=== PATIENT | male | born 1950 | race Caucasian/White ===

== ENCOUNTER 2018-07-28 15:46 | Outpatient (REF) | payer MEDICARE, SELFPAY ==
[2018-07-28 18:42] LABS: ALT 35 U/L (12-78); Anion Gap 10.9 mmol/L (3-11); BUN 21 mg/dL (7-18); CO2 27.1 mmol/L (21.0-32.0); CREATININE 1.22 mg/dL (0.70-1.30); Calcium 8.7 mg/dL (8.5-10.1); Chloride 106 mmol/L (98-107); Estimated GFR 59.43 (mL/min/1.73m2); Glucose 138 mg/dL (70-100); LDL CHOLESTEROL 66 mg/dL (<100); Potassium 4.3 mmol/L (3.5-5.1); Sodium 144 mmol/L (136-145)
== END 2018-07-28 16:06 ==
LOC: NCHCN 15:46
PROVIDERS: PCP Internal Medicine; Visit Provider Internal Medicine
DX: E11.9 Type 2 diabetes mellitus without complications (principal); I10 Essential (primary) hypertension
CPT/HCPCS: 80048; 83721; 84460

== ENCOUNTER 2018-08-06 16:54 | Emergency (ER) | payer MEDICARE, SELFPAY ==
[2018-08-06 17:01] VITALS: BP 168/58; PULSE 68; RESP 20; TEMP 36.6; O2SAT 93
--- NOTE | 2018-08-06 17:11 | W.ED.GENAD ---
Discharge Plan Disposition Patient Disposition: HOME Condition: Good Discharge Details Chief Complaint: Cellulitis Clinical Impression: Gout Primary Care Provider: Zach Bustillo ED Provider: Sin Wolfe Home Meds and New Rx's Prescriptions: New ibuprofen [Motrin IB] 200 MG tablet 600 mg PO Q6H 5 Days Qty: 60 RF: 0 Continued aspirin [Aspir-81] 81 MG tablet,delayed release (DR/EC) 81 mg PO DAILY RF: 0 amlodipine 10 MG tablet 10 mg PO DAILY RF: 0 hydrochlorothiazide 25 MG tablet 25 mg PO DAILY RF: 0 albuterol sulfate [ProAir HFA] 200 PUFF HFA aerosol inhaler 2 puff Inhalation Q8H PRN PRNRF: 0 lisinopril 40 MG tablet 40 mg PO DAILY RF: 0 atenolol 50 MG tablet 50 mg PO DAILY RF: 0 Symbicort 1 PUFF HFA aerosol inhaler 1 puff Inhalation BID RF: 0 atorvastatin 40 mg Tablet 40 mg PO QPM RF: 0 metformin 850 mg Tablet 850 mg PO BID RF: 0 Discharge Instructions Instructions: Gout (ED) Additional Instructions: You are having a gouty attack. For the next 5 days stop eating cheese and meat. Please take 600 mg of ibuprofen every 6 hours for the next 4 to 5 days. If you notice any worsening of your symptoms, or any new symptoms such as vomiting, diarrhea, fever, chills, shortness of breath, chest pain, numbness, weakness, or fainting , please return immediately to the emergency department for reevaluation. Please follow up with your primary care provider as soon as possible for reassessment and reevaluation. If your symptoms do not improve after 5 days you may require additional medications including steroids or more side effect inducing addition gout medications. as always, it was a pleasure participating in your medical care today. Referrals: Zach Bustillo [Primary Care Provider] - Medical Decision Making This is a 67-year-old male with with a past medical history of gout who presents today for evaluation of pain in his great right toe for the last 3 to 4 days. He states that it feels just like out in the past. He does eat meat and cheese on a daily basis. Normally he takes black cherries to resolve his symptoms however unfortunately it is not black conner season. He presents today for treatment of his symptoms. He denies any concerning red flags of fever chills spreading redness swelling, leg pain, or calf pain. He denies any other complaints or modifying factors. Exam demonstrates signs and symptoms clinically consistent with gout. We will recommend NSAIDs to start, and hold off on steroids or colchicine secondary to his diabetes and the risk for inflation of high sugars, and diarrhea. Recommend abstaining from meat and cheese, and close follow-up with his PCP with no history of trauma and I see no current clinical indication for radiographic imaging. Signs and symptoms are inconsistent with fracture. I have extensively reviewed the treatment plan and discharge instructions with the patient and their family. I have addressed all patient concerns at this time. The patient and family was made aware of what symptoms to monitor for that would warrant a return to the emergency department. Discussed the plan with the patient and family, they demonstrate verbal understanding and agreement with our assessment and plan at this time. HPI General Date/Time Provider Initiated Documentation: 08/06/18 16:55. HPI Narrative: This is a pleasant 67-year-old male with a past medical history of hypertension, COPD, diabetes, CVA, high cholesterol, who presents today for evaluation of pain in his right great toe for the last 3 to 4 days. He has a history of gout and states that this feels very similar to this, normally he takes black cherries however he is not been able to find any black conner since that is out of season. He states he does eat a significant amount of preserved meats and cheeses every day, and denies any recent long trips, trauma, or other complaint. Pain is localized in his right great toe. There is some radiation in the foot when he walks, but no other pain or complaint. No calf tenderness. No shortness of breath, chest pain, numbness tingling or weakness. He denies any other modifying factors. He denies any fever or chills. He denies any recent surgeries, IV or illicit drug use Related Data Home Medications Medication Instructions Recorded Confirmed Symbicort 1 puff INHALATION BID 03/13/14 08/06/18 albuterol sulfate [ProAir HFA] 2 puff INHALATION Q8H PRN PRN 03/13/14 08/06/18 amlodipine 10 mg PO DAILY 03/13/14 08/06/18 aspirin [Aspir-81] 81 mg PO DAILY 03/13/14 08/06/18 atenolol 50 mg PO DAILY 03/13/14 08/06/18 hydrochlorothiazide 25 mg PO DAILY 03/13/14 08/06/18 lisinopril 40 mg PO DAILY 03/13/14 08/06/18 atorvastatin 40 mg PO QPM 08/06/18 08/06/18 ibuprofen [Motrin Ib] 600 mg PO Q6H 5 Days #60 tab 08/06/18 metformin 850 mg PO BID 08/06/18 08/06/18 Previous Rx's Medication Instructions Recorded ibuprofen [Motrin Ib] 600 mg PO Q6H 5 Days #60 tab 08/06/18 Allergies Allergy/AdvReac Type Severity Reaction Status Date / Time No Known Allergies Allergy Unverified 08/06/18 17:05 General Stated Complaint: Cellulitis ANGELO: 3 Review of Systems Review of Systems All systems reviewed & are unremarkable except as noted in HPI and below PFSH Social History Smoking/Tobacco Use Status: Current every day Alcohol Intake: never Drug use: Never Details: Quit cigarettes 6-9 mos ago Do you feel safe at home: Yes Do you feel safe in your relationship?: Yes Exam Narrative Exam Narrative: 1.Const: Well-nourished, Well-developed, appearing stated age 2.Eyes: PERRL, no conjunctival injection, and symmetrical lids. 3.ENT: Atraumatic external nose and ears. Moist MM. Neck: Symmetric, trachea midline, No thyromegaly. 4.CVS: +S1/S2, No murmurs or gallops. Peripheral pulses 2+ and equal in all extremities. Brisk capillary refill in all extremities. 5.RESP: Unlabored respiratory effort. Clear to auscultation bilaterally. No wheezes rales or rhonchi 6.GI: Soft, Nontender/Nondistended, No hepatosplenomegaly. No guarding or rebound. 7.MSK: Normocephalic/Atraumatic, Extremities w/o deformity. No cyanosis or clubbing, Normal movement of all extremities. Mild erythema around the metatarsal phalangeal joint of the great toe in the right foot. No significant warmth. No crepitus. No tophaceous gout. No evidence of trauma. No reproducible pain in the foot heel or calf. Capillary refill brisk. No evidence of cellulitis. No induration or severe edema. Notable worsening of pain with movement of the toe. 8.Skin: Warm, Dry. No rashes or lesions. 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 Sensation grossly intact, no focal neurologic deficits. 10.Psych: (AAO) x3. Appropriate mood and affect Course Vital Signs Temperature 36.6 C 08/06/18 17:01 Pulse 68 08/06/18 17:01 Respiratory Rate 20 08/06/18 17:01 Blood Pressure 168/58 H 08/06/18 17:01 Pulse Oximetry 93 L 08/06/18 17:01 Temperature 36.6 C 08/06/18 17:01 Temperature Source Oral 08/06/18 17:01 Pulse 68 08/06/18 17:01 Respiratory Rate 20 08/06/18 17:01 Respiratory Effort Non-Labored 08/06/18 17:03 Blood Pressure 168/58 H 08/06/18 17:01 Blood Pressure Position Supine 08/06/18 17:01 Pulse Oximetry 93 L 08/06/18 17:01 Oxygen Delivery Method Room Air 08/06/18 17:01 Oxygen Flow Rate 0 08/06/18 17:01
== END 2018-08-06 17:23 | disposition home or self-care (01) ==
PROVIDERS: Emergency Provider Student in an Organized Health Care Education/Training Program; PCP Internal Medicine
DX: M10.071 Idiopathic gout, right ankle and foot (principal); I10 Essential (primary) hypertension; J44.9 Chronic obstructive pulmonary disease, unspecified; E11.9 Type 2 diabetes mellitus without complications
CPT/HCPCS: 99282

== ENCOUNTER 2019-04-09 09:23 | Emergency (ER) | payer MEDICARE, SELFPAY ==
[2019-04-09 09:29] VITALS: BP 128/72; PULSE 62; RESP 16; TEMP 37; O2SAT 95
--- NOTE | 2019-04-09 09:45 | DI.RAD_ITS ---
EXAM: XR FOOT RT COMPLETE CLINICAL HISTORY: pain, r/o stress fracture TECHNIQUE: COMPARISON: No exams were available for comparison FINDINGS: Three views were obtained. There are degenerative changes of the foot and ankle particularly at the tibiotalar joint. No evidence of acute fracture. The requisition raises the possibility of stress f racture, there is no discrete evidence of stress fracture but if there is a high clinical suspicion o f stress fracture additional evaluation with bone scan or MRI may be considered. IMPRESSION:
--- NOTE | 2019-04-09 09:45 | DI.RAD_ITS ---
EXAM: XR ANKLE RT COMPLETE CLINICAL HISTORY: pain TECHNIQUE: COMPARISON: No exams were available for comparison FINDINGS: Three views were obtained. Moderate degenerative changes noted at tibiotalar joint and to a lesser d egree the subtalar joints. No fracture identified. The ankle mortise is well maintained. IMPRESSION:
--- NOTE | 2019-04-09 09:48 | W.ED.GENAD ---
Discharge Plan Disposition Patient Disposition: HOME Condition: Stable Discharge Details Chief Complaint: Orthopedic Clinical Impression: Pain Primary Care Provider: Zach Bustillo ED Provider: Izzy Pizarro Home Meds and New Rx's Prescriptions: New prednisone 20 mg tablet 40 mg PO DAILY Qty: 6 RF: 0 No Action aspirin [Aspir-81] 81 MG tablet,delayed release (DR/EC) 81 mg PO DAILY RF: 0 amlodipine 10 MG tablet 10 mg PO DAILY RF: 0 hydrochlorothiazide 25 MG tablet 25 mg PO DAILY RF: 0 albuterol sulfate [ProAir HFA] 200 PUFF HFA aerosol inhaler 2 puff Inhalation Q8H PRN PRNRF: 0 lisinopril 40 MG tablet 40 mg PO DAILY RF: 0 atenolol 50 MG tablet 50 mg PO DAILY RF: 0 budesonide-formoterol [Symbicort] 1 PUFF HFA aerosol inhaler 1 puff Inhalation BID RF: 0 atorvastatin 40 mg Tablet 40 mg PO QPM RF: 0 metformin 850 mg Tablet 850 mg PO BID RF: 0 Discharge Instructions Instructions: Gout (ED) Additional Instructions: Rest. Activities as tolerated. Elevate injury to prevent swelling. Ice to the area of discomfort for 15 min. 3-5 times daily. Prednisone for three days for inflammation. Closely monitor your blood sugars while taking this medication. Followup with ultrasound on thursday as discussed. Post operative shoe or supportive boot for comfort. Followup with Primary care doctor as discussed for reevaluation early this week. Please recheck right lower leg pain and followup on your kidney function changes as discussed Drink at least four 8oz glasses of water daily (Ideally your should be drinking eight 8 oz glasses daily). Limit soda consumption. Return for any worsening or concerns sooner if needed. Discharge Data Discharge Date/Time-TO BE ENTERED AT DEPARTURE: 04/09/19 12:12 Medical Decision Making Is a very pleasant 68-year-old gentleman who is status post CVA with left-sided weakness presenting to the emergency room for atraumatic right lower leg pain. Patient comes in planes of ankle pain however on exam has notable foot pain and swelling. Lacks ankle pain or swelling. Patient has no associated calf pain or swelling proximal to the foot. Patient has no obvious erythema or warmth. No open wounds. Sensation intact. Pulses intact. Good cap refill. Patient does have a history of gout. It is possible that this patient is having a flare of gout however will rule out stress fracture as patient is complaining of focal pain on exam. Patient offered Tylenol declines at this time. Patient denies any ill feeling whatsoever. Reports 3 days of pain without escalation since onset. Patient's vital signs reviewed. Vital signs normal, patient afebrile and well-appearing in general. X-rays reveal no acute fracture. There are degenerative changes noted which are moderate at the first metatarsophalangeal joint. Labs reveal minimal leukocytosis. Patient's BUN and creatinine are somewhat worse compared to baseline. I have discussed this with the patient. I recommended he begins to drink water. Patient reports he has not had a glass of water in approximately 3 months. Encouraged discontinuation of soda drinking and encouraged normal hydration. We discussed amounts to drink and expectations. We also discussed good blood sugar monitoring. Patient advised to follow-up closely with his doctor for rechecking labs related to his kidney function. No obvious elevation in uric acid on patient's serum testing however given patient's spontaneous onset of 3 days of foot pain and swelling with history of gout in the past gout remains as part of the differential. Given patient's renal function I will provide prednisone as opposed to colchicine for management with a very short course of prednisone provided for only 3 days. I did discuss close monitoring of blood sugar while taking prednisone. Patient reports his understanding and agrees with plan of care. Offered postoperative shoe for patient's comfort. Patient does not appear systemically ill and has no significant indicators of infection clinically at this time. I did discuss observation for any increase in swelling or redness which could develop. If redness or infectious signs develop patient's been recommended to return to the emergency room. Given onset of right foot swelling without obvious injury or trauma and patient's history of stroke I will order outpatient ultrasound for Thursday although I have a low suspicion and do not feel this patient requires anticoagulation at this time but rather close follow-up in outpatient ultrasound on Thursday. Patient agrees with plan of care. Encouraged to continue aspirin daily until that time. Encourage close follow-up with PCP. Patient agrees with plan of care. Patient declines any medications at this time he does have Vicodin at home if required for pain. The patient was stable and requested discharge. Prior to discharge, my usual and customary return precautions were reviewed with the patient - this included follow-up instructions and reasons to return to the Emergency Department if conditions worsens, does not improve as expected, or other new concerns arise. HPI General Date/Time Provider Initiated Documentation: 04/09/19 09:46. HPI Narrative: Is a very pleasant 68-year-old gentleman presenting to the emergency room for complaints of right leg pain. Patient specifically reports 3 days ago he awoke with right foot and ankle pain when getting out of bed in the morning. Patient reports persistence of pain for the last 3 days. No escalation of pain. Patient concerned with the possibility of a sprained ankle but denies any specific injury or trauma. Patient does have a history of gout in his great toe in the past. Patient denies any ill feeling, fever, chills, nausea, vomiting. Denies calf pain. Patient denies numbness, tingling or weakness associated. Patient does have a history of CVA with left-sided deficits and baseline weakness of his left side, walks with a cane for ambulation and stability. Reports his right side is as strong side and his right lower leg is the site of pain which is quite difficult to manage with his baseline left-sided weakness. Related Data Home Medications Medication Instructions Recorded Confirmed albuterol sulfate [ProAir HFA] 2 puff INHALATION Q8H PRN PRN 03/13/14 04/09/19 amlodipine 10 mg PO DAILY 03/13/14 04/09/19 aspirin [Aspir-81] 81 mg PO DAILY 03/13/14 04/09/19 atenolol 50 mg PO DAILY 03/13/14 04/09/19 budesonide-formoterol [Symbicort] 1 puff INHALATION BID 03/13/14 04/09/19 hydrochlorothiazide 25 mg PO DAILY 03/13/14 04/09/19 lisinopril 40 mg PO DAILY 03/13/14 04/09/19 atorvastatin 40 mg PO QPM 08/06/18 04/09/19 metformin 850 mg PO BID 08/06/18 04/09/19 prednisone 40 mg PO DAILY #6 tab 04/09/19 Previous Rx's Medication Instructions Recorded prednisone 40 mg PO DAILY #6 tab 04/09/19 Allergies Allergy/AdvReac Type Severity Reaction Status Date / Time No Known Allergies Allergy Unverified 04/09/19 09:49 General Stated Complaint: Orthopedic ANGELO: 3 Review of Systems All systems reviewed & are unremarkable except as noted in HPI and below Constitutional Constitutional: Denies chills, Denies fatigue, Denies fever(s), Denies headache(s) and Denies malaise ENT Ears, Nose, Mouth, and Throat: Denies headache(s) and Denies neck pain Musculoskeletal Musculoskeletal: Reports abnormal gait (limping, difficulty ambulating, walking w/ cane), Denies back pain, Denies neck pain, Denies numbness, Denies radiating pain into limb and Denies tingling Integumentary/Breasts Skin/Breast: Denies erythema, Denies rash and Denies wounds Neurologic Neurologic: Reports abnormal gait (limping, difficulty ambulating, walking w/ cane), Denies headache(s), Denies numbness and Denies tingling Endocrine Endocrine: Denies fatigue [facility] Social History Smoking/Tobacco Use Status: Former Tobacco Use Alcohol Intake: never Drug use: Never Details: Quit cigarettes 6-9 mos ago Do you feel safe at home: Yes Do you feel safe in your relationship?: Yes Exam Narrative Exam Narrative: CONST: Healthy appearing patient, in no acute distress. Well hydrated. Alert and oriented. NECK: Normal visual inspection. FROM. Trachea midline. No Midline tenderness. MUSCULOSKELETAL: With use of a cane, limping gait. No hip pain with palpation, knee pain with palpation or edwards pain with palpation. No calf pain with palpation. No ankle pain with palpation either medially laterally or posteriorly. Achilles tendon intact and nontender. No erythema or swelling of the ankle. Moderate swelling of the right foot. Foot pain with palpation along the fourth and fifth metacarpals as well as of the great toe. No open wounds. Pulses intact. Cap refill normal. Sensation intact. Full range of motion. Pain reported when bearing weight SKIN: Normal. Dry. No rashes. NEURO: Alert and awake. Speech clear. PSYCH: Normal affect. Cooperative.
[2019-04-09 10:09] LABS: Abs Immature Grans 0.02 k/cumm (0.0-0.09); Absolute Basophil Count 0.02 k/cumm (0.0-0.2); Absolute Eosinophil Count 0.09 k/cumm (0.0-0.7); Absolute Monocyte Count 1.02 k/cumm (0.11-0.7); Basophils % 0.2; Eosinophils % 0.8; HCT 42.4 % (40.0-50.0); HGB 13.9 g/dL (13.5-17.5); Immature Grans % 0.2 %; Lymphocytes % 10.2; Mean Corp. HGB Concentration 32.8 g/dL (32.0-36.0); Mean Corpuscular Hemoglobin 29.6 pg (27.0-33.0); Mean Corpuscular Volume 90.4 fL (80-95); Mean Platelet Volume 10.2 fL (8.0-11.0); Monocytes % 8.7; Neutrophils % 79.9; Platelet Count 245 x1000/uL (130-400); RBC 4.69 m/cumm (4.50-6.00); RBC Distribution Width 13.7 % (11.8-14.1); White Blood Cell Count 11.73 k/cumm (4.4-10.8)
[2019-04-09 10:10] LABS: Absolute Neutrophil Count 9.37 k/cumm (1.2-6.7)
[2019-04-09 10:22] LABS: ALT 25 U/L (16-63); AST 19 U/L (15-37); Albumin 3.4 g/dL (3.4-5.0); Alkaline Phosphatase 67 U/L (46-116); Anion Gap 10.7 mmol/L (3-11); BUN 23 mg/dL (7-18); CO2 27.3 mmol/L (21.0-32.0); CREATININE 1.53 mg/dL (0.70-1.30); Calcium 8.9 mg/dL (8.5-10.1); Chloride 101 mmol/L (98-107); Estimated GFR 45.63 (mL/min/1.73m2); Glucose 144 mg/dL (74-106); Potassium 4.6 mmol/L (3.5-5.1); Sodium 139 mmol/L (136-145); Total Protein 7.8 g/dL (6.4-8.2)
[2019-04-09 10:23] LABS: Uric Acid 7.2 mg/dL (3.5-7.2)
--- NOTE | 2019-04-09 10:50 | DI.VRAD_ITS ---
PROCEDURE INFORMATION: Exam: XR Right Foot Complete Exam date and time: 04/09/2019 10:11 AM Age: 68 years old Clinical indication: Pain; Ankle and foot; Right TECHNIQUE: Imaging protocol: XR Right foot. Views: 3 or more views. COMPARISON: No relevant prior studies available. FINDINGS: Bones/joints: No acute fracture. No dislocation. Moderate degenerative changes of the 1st metatarsophalangeal joint. Mild degenerative changes of the interphalangeal joints. Mild dorsal midfoot degenerative change. Moderate degenerative changes of the ankle. No significant ankle joint effusion. Soft tissues: Non-specific soft tissue swelling of the forefoot. Faint nonspecific radiodensity anterior to the Achilles. IMPRESSION: 1. No acute osseous finding. 2. Moderate degenerative changes as above. 3. Nonspecific forefoot soft tissue swelling. Dictated and Authenticated by: Roc Sommer MD. Ordering:ANDRES Magana MD
--- NOTE | 2019-04-09 10:52 | DI.VRAD_ITS ---
PROCEDURE INFORMATION: Exam: XR Right Ankle Exam date and time: 04/09/2019 10:11 AM Age: 68 years old Clinical indication: Pain; Ankle and foot; Right TECHNIQUE: Imaging protocol: XR Right ankle. Views: 3 or more views. COMPARISON: No relevant prior studies available. FINDINGS: Bones/joints: No acute fracture. No dislocation. Joint spaces maintained. No joint effusion. Moderate degenerative changes of the ankle. Soft tissues: Non-specific soft tissue swelling. Nonspecific faint radiodensities anterior to the Achilles tendon. Calcification of the distal Achilles attachment to the calcaneus. IMPRESSION: No acute findings. Dictated and Authenticated by: Roc Sommer MD. Ordering:ANDRES Magana MD
== END 2019-04-09 12:12 | disposition home or self-care (01) ==
PROVIDERS: Emergency Provider Physician Assistant; PCP Internal Medicine
DX: M25.571 Pain in right ankle and joints of right foot (principal); M10.9 Gout, unspecified; I69.344 Monoplegia of lower limb following cerebral infarction affecting left non-dominant side; R94.4 Abnormal results of kidney function studies; R60.0 Localized edema
CPT/HCPCS: 36415; 80053; 99284; 73610; 73630; 84550; 85025

== ENCOUNTER 2019-09-23 09:23 | Emergency (ER) | payer OTHER, SELFPAY ==
--- NOTE | 2019-09-23 09:28 | W.ED.GENAD ---
Discharge Plan Disposition Patient Disposition: HOME Condition: Stable Discharge Details Chief Complaint: EyeProblem Clinical Impression: Eye foreign body, Corneal abrasion Primary Care Provider: Zach Bustillo ED Provider: Angel Contreras Home Meds and New Rx's Prescriptions: Continued aspirin [Aspir-81] 81 MG tablet,delayed release (DR/EC) 81 mg PO DAILY RF: 0 amlodipine 10 MG tablet 10 mg PO DAILY RF: 0 hydrochlorothiazide 25 MG tablet 25 mg PO DAILY RF: 0 albuterol sulfate [ProAir HFA] 200 PUFF HFA aerosol inhaler 2 puff Inhalation Q8H PRN PRNRF: 0 lisinopril 40 MG tablet 40 mg PO DAILY RF: 0 atenolol 50 MG tablet 50 mg PO DAILY RF: 0 budesonide-formoterol [Symbicort] 1 PUFF HFA aerosol inhaler 1 puff Inhalation BID RF: 0 prednisone 20 mg tablet 40 mg PO DAILY Qty: 6 RF: 0 atorvastatin 40 mg Tablet 40 mg PO QPM RF: 0 metformin 850 mg Tablet 850 mg PO BID RF: 0 hydrocodone-acetaminophen 5-325 mg tablet 1 tab PO DAILY RF: 0 Advair HFA 115-21 mcg/actuation HFA aerosol inhaler 1 puff INHALATION DAILY RF: 0 Discharge Instructions Instructions: Corneal Abrasion (ED), Eye Foreign Body (ED) Additional Instructions: It appears as though you have a foreign body in your eye as well as an abrasion to your cornea. I have inserted Ilotycin eye ointment here in the ER. I have made you an eye appointment at [facility], [place] today at 1:40 PM, be sure to go there at the scheduled time. Their line is [phone]. Please watch for new or worsening symptoms and return to the ER for any concerns. Medical Decision Making 68-year-old gentleman presents for eye irritation, drainage over the past 2 days after he got dirt in his eye 3 days ago. He does not wear contacts or glasses. He denies any visual changes. His eye examination is extremely guarded. His vision bilaterally, left eye, right eye are all 20/[address] 4 drops of tetracaine in the right eye. Upon reevaluation he reports that he is asymptomatic, pain has resolved completely. Eye exam remains extremely guarded. Using tetracaine I am able to visualize a foreign body near the center of his pupil and a abrasion in the 3 o'clock position. Simply placing the fluorescein strip in his eye was very difficult, he did move his head during this. D foreign body in his pupil area appears slightly deeper than what I would expect a Q-tip to be able to remove. I believe he will likely require removal with a 18-gauge needle or drill. Given his difficult eye exam, I am concerned to cause more damage while attempting to remove the foreign body. Certainly not emergent in nature. I will attempt to get him an appointment with an patient accounts specialist. In the meantime Ilotycin eye ointment placed in the right eye We were able to make an appointment at [facility], [place] today at 1:40 PM. I also spoke with the patient's , Julia, to make her aware of the ER visit and the importance of follow-up at 140 today. She is agreeable to this. Patient has no additional questions or concerns and is asymptomatic upon discharge. HPI General Mode of arrival: ambulatory. Date/Time Provider Initiated Documentation: 09/23/19 09:24. Limitations to Documentation: no limitations. Information obtained by: patient. HPI Narrative: This is a 68-year-old male with history of diabetes and hypertension, who presents with right eye irritation. He reports that 2 days ago some dirt from underneath his car fell into his eye. He initially tried to flush his eye out but his eye has become more irritated and red. He reports that his eye is mildly uncomfortable. Minimal drainage but was not crusted shut. He does not wear any contacts or glasses. He denies any blurry or double vision. He has no additional questions or concerns. Denies recent illness or any injury. Related Data Home Medications Medication Instructions Recorded Confirmed albuterol sulfate [ProAir HFA] 2 puff INHALATION Q8H PRN PRN 03/13/14 04/09/19 amlodipine 10 mg PO DAILY 03/13/14 09/23/19 aspirin [Aspir-81] 81 mg PO DAILY 03/13/14 04/09/19 atenolol 50 mg PO DAILY 03/13/14 09/23/19 budesonide-formoterol [Symbicort] 1 puff INHALATION BID 03/13/14 04/09/19 hydrochlorothiazide 25 mg PO DAILY 03/13/14 04/09/19 lisinopril 40 mg PO DAILY 03/13/14 09/23/19 atorvastatin 40 mg PO QPM 08/06/18 09/23/19 metformin 850 mg PO BID 08/06/18 04/09/19 prednisone 40 mg PO DAILY #6 tab 04/09/19 Advair HFA 1 puff INHALATION DAILY 09/23/19 09/23/19 hydrocodone-acetaminophen 1 tab PO DAILY 09/23/19 09/23/19 Previous Rx's Medication Instructions Recorded prednisone 40 mg PO DAILY #6 tab 04/09/19 Allergies Allergy/AdvReac Type Severity Reaction Status Date / Time No Known Allergies Allergy Unverified 09/23/19 09:33 General ANGELO: 3 Review of Systems Constitutional Constitutional: Denies fever(s) and Denies weakness Eyes Eyes: Denies blurry vision, Denies change in vision, Denies diplopia, Reports eye discharge, Reports irritation, Denies loss of peripheral vision, Denies loss of vision, Denies other visual disturbances, Reports eye pain, Denies requires corrective lenses, Denies seeing flashes and Denies photophobia Musculoskeletal Musculoskeletal: Denies numbness and Denies tingling Neurologic Neurologic: Denies loss of vision, Denies numbness, Denies tingling and Denies weakness [facility] Social History Smoking/Tobacco Use Status: Former Tobacco Use Alcohol Intake: never Drug use: Never Details: Quit cigarettes 6-9 mos ago Do you feel safe at home: Yes Do you feel safe in your relationship?: Yes Exam Const General: cooperative, healthy appearing, comfortable and no acute distress Orientation: alert, awake and oriented x3 HENMT Head: normal to inspection, normocephalic and atraumatic Face and sinus: normal facial exam Mouth: moist mucous membranes Eyes General: appearance normal, both eyes and all related structures Alignment and Position: alignment normal Periorbital: periorbital findings normal Eyelids: eyelids normal Conjunctivae: conjunctival abnormality right conjunctival injection Sclera: scleral abnormality right scleral injection diffuse Cornea: corneas abnormal on the right fluorescein used, abrasion (3 o'clock position) and foreign body (Centrally to the pupil) and fluorescein used Pupils: PERRL EOM: EOM intact bilaterally Direct ophthalmoscopy: normal light reflex Other: Extremely guarded eye exam Neck Neck: normal visual inspection, full ROM, trachea midline and supple Resp Effort & Inspection: normal respiratory effort and able to speak in complete sentences Cardio Rate: regular rate Rhythm: regular rhythm Skin General skin exam: no rashes or lesions noted Neuro General: patient alert, patient awake, patient oriented x3, moves all extremities and no focal motor deficits Cranial Nerves: CN's II-XI intact bilaterally Cognition: normal cognition Speech: speech normal Sensory Exam: no sensory deficits noted Psych Appearance: grossly normal Mental Status: mental status grossly normal
[2019-09-23 09:29] VITALS: BP 140/75; PULSE 54; RESP 18; TEMP 36.4; O2SAT 94
[2019-09-23] MEDS: Erythromycin Ophth Oint 3.5 GM TUBE OD (10:41)
[2019-09-23 10:50] VITALS: BP 140/75; PULSE 54; RESP 18; TEMP 36.4; O2SAT 94
== END 2019-09-23 10:55 | disposition home or self-care (01) ==
PROVIDERS: Emergency Provider Physician Assistant; PCP Internal Medicine
DX: S05.8X1A Other injuries of right eye and orbit, initial encounter (principal); T15.91XA Foreign body on external eye, part unspecified, right eye, initial encounter; X58.XXXA Exposure to other specified factors, initial encounter; I10 Essential (primary) hypertension; E11.9 Type 2 diabetes mellitus without complications; Z79.84 Long term (current) use of oral hypoglycemic drugs
CPT/HCPCS: 99283

== ENCOUNTER 2020-07-26 16:01 | Outpatient (REF) | payer OTHER, SELFPAY ==
[2020-07-26 18:48] LABS: ALT 28 U/L (16-63); Anion Gap 10.5 mmol/L (3-11); BUN 34 mg/dL (7-18); CO2 27.5 mmol/L (21.0-32.0); CREATININE 1.6 mg/dL (0.70-1.30); Chloride 103 mmol/L (98-107); Glucose 106 mg/dL (74-106); LDL CHOLESTEROL 55 mg/dL (<100); Potassium 3.7 mmol/L (3.5-5.1); Sodium 141 mmol/L (136-145)
== END 2020-07-26 16:02 | disposition home or self-care (01) ==
LOC: NCHCN 16:01
PROVIDERS: PCP Internal Medicine; Visit Provider Internal Medicine
DX: I10 Essential (primary) hypertension (principal); E11.9 Type 2 diabetes mellitus without complications; N18.30 Chronic kidney disease, stage 3 unspecified
CPT/HCPCS: 80048; 83721; 84460

== ENCOUNTER → 2020-08-22 14:09 | Outpatient (CLI) | payer OTHER, SELFPAY ==
--- NOTE | 2020-08-22 | DI.RAD_ITS ---
Exam(s) XR FOOT LT COMPLETE EXAM: XR FOOT LT COMPLETE CLINICAL HISTORY: LT FOOT PAIN, M79.672,LT LEG EDEMA. TECHNIQUE: 2D digital imaging was performed. COMPARISON: No exams were available for comparison FINDINGS: There is no acute fracture or dislocation. There are degenerative changes seen at the 1st MTP joint. The bones are normally mineralized. The lateral view of the foot is suboptimal due to patient posi tioning. Dystrophic calcifications are seen in the soft tissues. There is a mild hallux valgus defo rmity. IMPRESSION: No acute fracture or dislocation. DATA REPOSITORY: RADIATION DOSE DELIVERED:
--- NOTE | 2020-08-22 | DI.US_ITS ---
Exam(s) US LOWER EXTREMITY VENOUS LT EXAM: US LOWER EXTREMITY VENOUS LT CLINICAL HISTORY: LT LEG EDEMAM R60.0 TECHNIQUE: Left lower extremity venous ultrasound performed using grayscale, color-flow, and spectra l Doppler analysis. COMPARISON: No exams were available for comparison FINDINGS: The left common femoral, femoral and popliteal veins demonstrate normal compressibility, augmentation , and color Doppler. The posterior tibial veins are patent. The saphenofemoral junction is unremarka ble. There is no evidence of a Bingham cyst. The soft tissues are unremarkable. IMPRESSION: No DVT. DATA REPOSITORY:
== END ==
PROVIDERS: PCP Internal Medicine; Visit Provider Nurse Practitioner Family
DX: R60.0 Localized edema (principal); M79.672 Pain in left foot
CPT/HCPCS: 73630; 93971

== ENCOUNTER 2021-07-24 12:40 | Outpatient (REF) | payer MEDICARE, SELFPAY ==
[2021-07-24 20:00] LABS: HCT 44.2 % (40.0-50.0); HGB 14.7 g/dL (13.5-17.5); MCH 30.4 pg (27.0-33.0); MCHC 33.3 % (32.0-36.0); MCV 92 fL (80-95); MPV 11.1 fL (8.0-11.0); Platelet Count 181 10^3/uL (130-400); RBC 4.83 10^6/uL (4.36-5.78); RDW 13.8 % (11.8-14.1); RDW-SD 46.5 fL; WBC 9.26 10^3/uL (4.4-10.8)
[2021-07-24 20:20] LABS: Anion Gap 12.3 mmol/L (3-11); BUN 28 mg/dL (7-18); CO2 25.7 mmol/L (21.0-32.0); CREATININE 1.5 mg/dL (0.70-1.30); Calcium 8.7 mg/dL (8.5-10.1); Chloride 103 mmol/L (98-107); Glucose 109 mg/dL (74-106); Potassium 4.1 mmol/L (3.5-5.1); Sodium 141 mmol/L (136-145)
== END 2021-07-24 12:41 | disposition home or self-care (01) ==
LOC: NCHCN 12:40
PROVIDERS: PCP Internal Medicine; Visit Provider Internal Medicine
DX: R60.0 Localized edema (principal); N18.30 Chronic kidney disease, stage 3 unspecified; E11.9 Type 2 diabetes mellitus without complications
CPT/HCPCS: 80048; 85027; 84443

== ENCOUNTER 2022-11-20 16:44 | Outpatient (REF) | payer MEDICARE, SELFPAY ==
[2022-11-20 19:35] LABS: Anion Gap 3.8 mmol/L (3-11); BUN 26 mg/dL (7-18); CO2 30.2 mmol/L (21.0-32.0); CREATININE 1.4 mg/dL (0.70-1.30); Calcium 9.2 mg/dL (8.5-10.1); Calculated LDL 49 mg/dL (<100); Chloride 106 mmol/L (98-107); Cholesterol 123 mg/dL (<200); Estimated GFR 53.74 (mL/min/1.73m2); Glucose 184 mg/dL (74-106); HDL Cholesterol 40 mg/dL (40-60); Sodium 140 mmol/L (136-145); Triglyceride 173 mg/dL (<150)
== END 2022-11-20 16:45 | disposition home or self-care (01) ==
LOC: NCHCN 16:44
PROVIDERS: PCP Internal Medicine; Visit Provider Internal Medicine
DX: G43.909 Migraine, unspecified, not intractable, without status migrainosus (principal); E11.22 Type 2 diabetes mellitus with diabetic chronic kidney disease; N18.30 Chronic kidney disease, stage 3 unspecified; I12.9 Hypertensive chronic kidney disease with stage 1 through stage 4 chronic kidney disease, or unspecified chronic kidney disease; E78.5 Hyperlipidemia, unspecified; M17.9 Osteoarthritis of knee, unspecified
CPT/HCPCS: 80048; 80061

== ENCOUNTER 2023-08-08 21:28 | Emergency (ER) | payer MEDICARE, SELFPAY ==
[2023-08-08] VITALS (21 sets, daily range): BP systolic 108–138; BP diastolic 51–67; PULSE 83–106; RESP 16–26; TEMP 38; O2SAT 86–99
--- NOTE | 2023-08-08 21:30 | RT.EKG_ITS ---
APPROVED REPORT Exam: Resting ECG Reason for Exam: chest pain Patient Location: E HR:100 bpm ECG Measurements Heart Rate 100 AXIS MT 151 P 68 QRSd 87 QRS 49 QT 290 T 262 QTc 376 Conclusion Sinus tachycardia...rate> 99 Anterior infarct, old...Q >40mS, abnormal ST-T, V2-V5 Physician: no stemi
[2023-08-08 21:56] LABS: Abs Immature Grans 0.09 10^3/uL (0.0-0.06); Absolute Basophil Count 0.03 10^3/uL (0.0-0.2); Absolute Eosinophil Count 0.01 10^3/uL (0.0-0.7); Absolute Lymphocyte Count 0.25 10^3/uL (1.2-3.4); Absolute Monocyte Count 0.47 10^3/uL (0.1-0.8); Absolute Neutrophil Count 13.97 10^3/uL (1.2-6.7); Basophils % 0.2 %; Eosinophils % 0.1 %; HCT 46.7 % (40.0-50.0); HGB 15.7 g/dL (13.5-17.5); Immature Grans % 0.6 %; Lymphocytes % 1.7 %; MCH 31.1 pg (27.0-33.0); MCHC 33.6 % (32.0-36.0); MCV 93 fL (80-95); MPV 10.1 fL (8.0-11.0); Monocytes % 3.2 %; Neutrophils % 94.2 %; Platelet Count 148 10^3/uL (130-400); RBC 5.05 10^6/uL (4.36-5.78); RDW 13.6 % (11.8-14.1); RDW-SD 46.2 fL; WBC 14.83 10^3/uL (4.4-10.8)
[2023-08-08 22:15] LABS: ALT 26 U/L (16-63); AST 18 U/L (15-37); Albumin 3.4 g/dL (3.4-5.0); Alkaline Phosphatase 81 U/L (46-116); Anion Gap 9.8 mmol/L (3-11); BUN 27 mg/dL (7-18); Bilirubin, Total 0.79 mg/dL (0.2-1.0); CO2 27.2 mmol/L (21.0-32.0); CREATININE 1.6 mg/dL (0.70-1.30); Calcium 8.8 mg/dL (8.5-10.1); Chloride 104 mmol/L (98-107); Estimated GFR 45.78 (mL/min/1.73m2); Glucose 127 mg/dL (74-106); Lipase 40 U/L (16-77); Magnesium 1.3 mg/dL (1.8-2.4); Potassium 3.6 mmol/L (3.5-5.1); Sodium 141 mmol/L (136-145); Total Protein 7.1 g/dL (6.4-8.2); Troponin I < 50 ng/L (< or =60)
--- NOTE | 2023-08-08 22:16 | ED.GENADUL_ITS ---
Discharge Plan Discharge Details Chief Complaint: Nausea/Vomit/Diar Clinical Impression: Nausea & vomiting, Dehydration, Hypomagnesemia Primary Care Provider: Zach Bustillo ED Provider: Sin Wolfe Home Meds and New Rx's Prescriptions: No Action aspirin [Aspir-81] 81 MG tablet,delayed release (DR/EC) 81 mg PO DAILY amlodipine 10 MG tablet 10 mg PO DAILY hydrochlorothiazide 25 MG tablet 25 mg PO DAILY albuterol sulfate [ProAir HFA] 200 PUFF HFA aerosol inhaler 2 puff Inhalation Q8H PRN PRN lisinopril 40 MG tablet 40 mg PO DAILY atenolol 50 MG tablet 50 mg PO DAILY budesonide-formoterol [Symbicort] 1 PUFF HFA aerosol inhaler 1 puff Inhalation BID Patient Comments: not using-changed by provider prednisone 20 mg tablet 40 mg PO DAILY Qty: 6 0RF atorvastatin 40 mg Tablet 40 mg PO QPM metformin 850 mg Tablet 850 mg PO BID hydrocodone-acetaminophen 5-325 mg tablet 1 tab PO DAILY Patient Comments: TAKE 1 TABLET BY MOUTH EVERY 6 HOURS NEEDED. MAX DAILY DOSE 4 TABLETS. MUST LAST 28 DAYS Advair HFA 115-21 mcg/actuation HFA aerosol inhaler 1 puff INHALATION DAILY Patient Comments: INHALE 2 PUFFS BY MOUTH TWICE DAILY sumatriptan succinate 50 mg Tablet 50 mg PO ONCE HPI General Date/Time Provider Initiated Documentation: 08/08/23 21:34 . HPI Narrative: 72-year-old male with a past medical history of diabetes, reactive airway disease, gout, who presents today for evaluation of vomiting and feeling unwell. Patient presents via EMS and states that over the last 3 days he has felt unwell, had 3 episodes of vomiting per day, had some mild swelling in his lower extremities. He denies any abdominal pain, chest pain or cough. He does admit to chills. He denies any burning with urination. He states that he vomited just prior to arrival. No other complaints at this time. He denies hemoptysis, hematochezia, melena or acholic stool. Related Data Home Medications Medication Instructions Recorded Confirmed albuterol sulfate 90 mcg/actuation 2 puff inhalation Q8H PRN PRN 03/13/14 09/23/19 aerosol inhaler (ProAir HFA) amlodipine 10 mg tablet 10 mg PO DAILY 03/13/14 09/23/19 aspirin 81 mg tablet,delayed 81 mg PO DAILY 03/13/14 09/23/19 release (Aspir-) atenolol 50 mg tablet 50 mg PO DAILY 03/13/14 09/23/19 budesonide-formoterol HFA 80 1 puff inhalation BID 03/13/14 04/09/19 mcg-4.5 mcg/actuation aerosol inhaler (Symbicort) hydrochlorothiazide 25 mg tablet 25 mg PO DAILY 03/13/14 09/23/19 lisinopril 40 mg tablet 40 mg PO DAILY 03/13/14 09/23/19 atorvastatin 40 mg tablet 40 mg PO QPM 08/06/18 09/23/19 metformin 850 mg tablet 850 mg PO BID 08/06/18 09/23/19 prednisone 20 mg tablet 40 mg (2 x 20 mg) PO DAILY #6 tabs 04/09/19 fluticasone propionate 115 1 puff inhalation DAILY 09/23/19 09/23/19 mcg-salmeterol 21 mcg/actuation HFA inhaler (Advair HFA) hydrocodone 5 mg-acetaminophen 325 1 tab PO DAILY 09/23/19 09/23/19 mg tablet sumatriptan succinate 50 mg tablet 50 mg PO ONCE 09/23/19 09/23/19 Previous Rx's Medication Instructions Recorded prednisone 20 mg tablet 40 mg (2 x 20 mg) PO DAILY #6 tabs 04/09/19 Allergies Allergy/AdvReac Type Severity Reaction Status Date / Time No Known Allergies Allergy Unverified 09/23/19 09:33 General Stated Complaint: Nausea/Vomit/Diar ANGELO: 3 Review of Systems All systems reviewed & are unremarkable except as noted in HPI and below Exam Narrative Exam Narrative: 1.Const: Well-nourished, Well-developed, appearing stated age 2.Eyes: PERRL, no conjunctival injection, and symmetrical lids. 3.ENT: Atraumatic external nose and ears. Dry MM. Neck: Symmetric, trachea midline, No thyromegaly. 4.CVS: +S1/S2, No murmurs or gallops. Peripheral pulses 2+ and equal in all extremities. Brisk capillary refill in all extremities. 5.RESP: Unlabored respiratory effort. Clear to auscultation bilaterally. No wheezes rales or rhonchi 6.GI: Soft, Nontender/Nondistended, No hepatosplenomegaly. No guarding or rebound. 7.MSK: Normocephalic/Atraumatic, Extremities w/o deformity or ttp No cyanosis or clubbing, Normal movement of all extremities. Mild pitting edema of the lower extremities bilaterally. Mild erythema on the pretibial area in the left lower extremity. Mild tenderness over this area of erythema. No fluctuance or abscess. 8.Skin: Warm, Dry. No rashes or lesions. 9.Neuro: parts clerk II-XII grossly intact. Sensation grossly intact, no focal neurologic deficits. 10.Psych: (AAO) x3. Appropriate mood and affect Course Vital Signs Vital signs: Vital Signs Temperature 38.0 C H 08/08/23 21:30 Pulse 106 H 08/08/23 21:30 Respiratory Rate 18 08/08/23 21:30 Blood Pressure 138/67 08/08/23 21:30 Pulse Oximetry 90 L 08/08/23 21:30 Temperature 38.0 C H 08/08/23 21:30 Temperature Source Skin 08/08/23 21:30 Pulse 106 H 08/08/23 21:30 Respiratory Rate 18 08/08/23 21:30 Blood Pressure 138/67 08/08/23 21:30 Blood Pressure Position Sitting 08/08/23 21:30 Pulse Oximetry 90 L 08/08/23 21:39 Oxygen Delivery Method Nasal Cannula 08/08/23 21:39 Oxygen Flow Rate 2 08/08/23 21:39 Lab/Test Results Lab/Test Results: Laboratory Tests Range/Units 08/08/23 21:49 WBC (4.4-10.8) 10^3/uL 14.83 H RBC (4.36-5.78) 10^6/uL 5.05 Hgb (13.5-17.5) g/dL 15.7 Hct (40.0-50.0) % 46.7 MCV (80-95) fL 93 MCH (27.0-33.0) pg 31.1 MCHC (32.0-36.0) % 33.6 RDW (11.8-14.1) % 13.6 Plt Count (130-400) 10^3/uL 148 MPV (8.0-11.0) fL 10.1 Immature Gran % % 0.6 Neutrophils % % 94.2 Lymphocytes % % 1.7 Monocytes % % 3.2 Eosinophils % % 0.1 Basophils % % 0.2 Nucleated RBC % (0.0-0.3) % 0.0 Absolute Neutrophils (1.2-6.7) 10^3/uL 13.97 H Absolute Lymphocytes (1.2-3.4) 10^3/uL 0.25 L Absolute Monocytes (0.1-0.8) 10^3/uL 0.47 Absolute Eosinophils (0.0-0.7) 10^3/uL 0.01 Absolute Basophils (0.0-0.2) 10^3/uL 0.03 Medical Decision Making 72-year-old male with a past medical history of diabetes, reactive airway disease, gout, who presents today for evaluation of vomiting and feeling unwell. Patient presents via EMS and states that over the last 3 days he has felt unwell, had 3 episodes of vomiting per day, had some mild swelling in his lower extremities. He denies any abdominal pain, chest pain or cough. He does admit to chills. He denies any burning with urination. He states that he vomited just prior to arrival. No other complaints at this time. He denies hemoptysis, hematochezia, melena or acholic stool. Exam demonstrates dry mucous membranes, dried vomitus on the side of his mouth, notably nontender nonsurgical abdomen. Lungs are clear. Mild erythema on the left lower extremity in the area of the edema. No circumferential erythema though. No calf tenderness. Pitting edema is +2 in the left lower extremity, +1 in the right lower extremity. No history of DVT. Differential is broad, patient is febrile, mildly tachycardic. Concern for dehydration, pancreatitis, viral etiology, pneumonia, potential cellulitis for the left lower extremity. Symptoms appear inconsistent with intestinal obstruction, inconsistent with appendicitis or cholecystitis as he has no abdominal tenderness whatsoever on exam. We will give 2 g of ceftriaxone for what appears to be mild cellulitis in the left lower extremity. Will get x-ray of the abdomen and chest to evaluate for pneumonia or obstruction. Will check urinalysis for evidence of infection. Will monitor closely and reassess. 10:55 PM Laboratory workup shows white count of 14.8, mild left shift but no bandemia. Creatinine demonstrates 1.6, GFR 45, magnesium is notably low at 1.3. 2 g of IV magnesium will be administered. Urinalysis shows no evidence of infection. Pending x-ray and Fluvid results. Patient does feel better after Zofran. Patient will be signed out to my colleague Dr. Mcfadden for follow-up on Fluvid results, x-rays of the chest and abdomen, and reassessment. 1 L total of normal saline fluid has been ordered for the patient. Quality:[facility] Related Social Needs: No Data to Display [facility] All Active Problems (Updated 08/08/23 @ 22:59 by Sin Wolfe DO) Hypomagnesemia (Acute) Dehydration (Acute) Nausea & vomiting (Acute) Pain (Acute) Social History Smoking/Tobacco Use Status: Former Tobacco Use Smoking risk assessment performed?: Yes Alcohol Intake: never Drug use: Never Details: Quit cigarettes 6-9 mos ago Do you feel safe at home: Yes Do you feel safe in your relationship?: Yes
[2023-08-08 22:25] LABS: Bilirubin Negative (Negative); Blood Small (Negative); Clarity Clear (Clear); Glucose Negative (Negative); Ketones Negative (Negative); Leukocyte Esterase Negative (Negative); Nitrite Negative (Negative)
[2023-08-08 22:27] LABS: Bacteria Rare HPF (Negative); C & S Indicated? No; Casts Negative LPF (Negative); Crystals Negative HPF (Negative); Epithelial Cells Rare HPF (Negative); Mucus Negative (Negative); WBC Negative HPF (0-5)
[2023-08-08] MEDS: Normal Saline 500 ML IV ×2 (23:04→23:42)
[2023-08-08 23:06] LABS: Procalcitonin 1.5 ng/mL
--- NOTE | 2023-08-08 23:30 | ED.PROG_ITS ---
Date of service: 08/08/23 Time of Service: 23:30 Medical Decision Making This patient was signed out to me. Please see previous notes for H&P and initial eval. In brief, 72yo M presenting with N/V for 3 days, exam significant for mild LE cellulitis. Signed out pending respiratory viral swab and XR to eval for bowel obstruction/pneumonia (low suspicion for both, CT scanner down). Given ceftriaxone. Currently feeling much better. Plan at signout to followup XR, respiratory viral swab, and reassess. Potentially appropriate for discharge home if remainder of workup reassuring and able to tolerate PO. -Viral swab negative Plain films independently reviewed. -Abdomen film with no obstruction on my view, radiology read with potential iliac artery aneurysm. As patient is without any pain and asymptomatic with this would advise outpatient followup. -CXR with diffuse interstitial infiltrates, agree with radiology read below with possible CHF. Pt with no history of this and denies any difficulty breathing, lungs CTAB. He does have some LE edema which he says is new. Of note he did have O2 sats in high 80's to low 90's on arrival and was placed on oxygen; does have COPD (not on oxygen at home). On my assessment patient is on 4L O2 NC; trialed off and desats to 87-88 on room air and down to 84 when speaking. Placed back on oxygen. Primary complaint on arrival was vomiting which has since resolved- no vomiting in the ED and patient declined zofran as he was not nauseated at the time. Has since tolerated PO.. SIRS + without overt source of bacterial infection aside from potentially mild cellulitis- he did receive a total of 1L IVF as well ceftriaxone and magnesium repletion. Not clearly septic though is possible. Will send lactate and add on BNP to further evaluate. Will try low dose IV lasix and monitor for effect. Lactate 1.6,reassuring. BNP minimally elevated at 515. On reassessment he is well appearing, O2 sat now 94% on room air, reassuring vital signs. Gee removed. Discussed options with patient; he does not want to remain in the hospital for further workup (i.e. echocardiogram, etc., for possible CHF) and would like to go home. As he has normal vital signs and his labs are overall reassuring and his symptoms have entirely resolved, this is not unreasonable with close PCP followup. Strict return precautions were reviewed. Does have left sided weakness at baseline from prior stroke; trial ambulation and able to stand and ambulate independently with walker (uses cane at home). Discharged home; discharge instructions and return precautions were reviewed with patient who verbalized understanding. All questions were answered and he is in full agreement with the plan. Waiting on ride. Imaging Data Radiologic Study: Imaging: X-Ray Radiologist's impression: IMPRESSION: 1. Probable congestive heart failure. 2. There is diffuse interstitial edema. 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 Consider CT angiography for further evaluation. Constipation. Lab Data Lab results reviewed: Yes I reviewed the patient's lab results. Labs: Laboratory Tests Range/Units 08/08/23 08/08/23 08/08/23 21:47 21:49 22:19 WBC (4.4-10.8) 10^3/uL 14.83 H RBC (4.36-5.78) 10^6/uL 5.05 Hgb (13.5-17.5) g/dL 15.7 Hct (40.0-50.0) % 46.7 MCV (80-95) fL 93 MCH (27.0-33.0) pg 31.1 MCHC (32.0-36.0) % 33.6 RDW (11.8-14.1) % 13.6 Plt Count (130-400) 10^3/uL 148 MPV (8.0-11.0) fL 10.1 Immature Gran % % 0.6 Neutrophils % % 94.2 Lymphocytes % % 1.7 Monocytes % % 3.2 Eosinophils % % 0.1 Basophils % % 0.2 Nucleated RBC % (0.0-0.3) % 0.0 Absolute Neutrophils (1.2-6.7) 10^3/uL 13.97 H Absolute Lymphocytes (1.2-3.4) 10^3/uL 0.25 L Absolute Monocytes (0.1-0.8) 10^3/uL 0.47 Absolute Eosinophils (0.0-0.7) 10^3/uL 0.01 Absolute Basophils (0.0-0.2) 10^3/uL 0.03 VBG Lactate (0.6-1.4) mmol/L Sodium (136-145) mmol/L 141 Potassium (3.5-5.1) mmol/L 3.6 Chloride (98-107) mmol/L 104 Carbon Dioxide (21.0-32.0) mmol/L 27.2 Anion Gap (3-11) mmol/L 9.8 BUN (7-18) mg/dL 27 H Creatinine (0.70-1.30) mg/dL 1.6 H Est GFR (CKD-EPI 2020) (mL/min/1.73m2) 45.78 Glucose (74-106) mg/dL 127 H Calcium (8.5-10.1) mg/dL 8.8 Magnesium (1.8-2.4) mg/dL 1.3 L Total Bilirubin (0.2-1.0) mg/dL 0.79 AST (15-37) U/L 18 ALT (16-63) U/L 26 Alkaline Phosphatase (46-116) U/L 81 Troponin I (< or =60) ng/L < 50 NT-Pro-B Natriuret Pep (<300) pg/mL Total Protein (6.4-8.2) g/dL 7.1 Albumin (3.4-5.0) g/dL 3.4 Lipase (16-77) U/L 40 Procalcitonin ng/mL 1.5 Urine Color (Yellow) Yellow Urine Clarity (Clear) Clear Urine pH (5-8) 6.0 Ur Specific [place] (1.005-1.025) 1.020 Urine Protein (Neg-Trace) mg/dL 100 H Urine Ketones (Negative) mg/dL Negative Urine Blood (Negative) Small H Urine Nitrite (Negative) Negative Urine Bilirubin (Negative) Negative Urine Urobilinogen (Up to 0.2) mg/dL 1.0 H Ur Leukocyte Esterase (Negative) Negative Urine RBC (0-2) HPF 5-10 H Urine WBC (0-5) HPF Negative Ur Epithelial Cells (Negative) HPF Rare Urine Crystals (Negative) HPF Negative Urine Bacteria (Negative) HPF Rare Urine Casts (Negative) LPF Negative Urine Mucus (Negative) Negative Ur Culture Indicated? No Urine Glucose (Negative) mg/dL Negative COVID-19 Source SARS-CoV-2 (PCR) (Negative) Influenza Type A (PCR) (Negative) Influenza Type B (PCR) (Negative) RSV (PCR) (Negative) Range/Units 08/08/23 08/09/23 23:00 02:20 WBC (4.4-10.8) 10^3/uL RBC (4.36-5.78) 10^6/uL Hgb (13.5-17.5) g/dL Hct (40.0-50.0) % MCV (80-95) fL MCH (27.0-33.0) pg MCHC (32.0-36.0) % RDW (11.8-14.1) % Plt Count (130-400) 10^3/uL MPV (8.0-11.0) fL Immature Gran % % Neutrophils % % Lymphocytes % % Monocytes % % Eosinophils % % Basophils % % Nucleated RBC % (0.0-0.3) % Absolute Neutrophils (1.2-6.7) 10^3/uL Absolute Lymphocytes (1.2-3.4) 10^3/uL Absolute Monocytes (0.1-0.8) 10^3/uL Absolute Eosinophils (0.0-0.7) 10^3/uL Absolute Basophils (0.0-0.2) 10^3/uL VBG Lactate (0.6-1.4) mmol/L 1.6 H Sodium (136-145) mmol/L Potassium (3.5-5.1) mmol/L Chloride (98-107) mmol/L Carbon Dioxide (21.0-32.0) mmol/L Anion Gap (3-11) mmol/L BUN (7-18) mg/dL Creatinine (0.70-1.30) mg/dL Est GFR (CKD-EPI 2020) (mL/min/1.73m2) Glucose (74-106) mg/dL Calcium (8.5-10.1) mg/dL Magnesium (1.8-2.4) mg/dL Total Bilirubin (0.2-1.0) mg/dL AST (15-37) U/L ALT (16-63) U/L Alkaline Phosphatase (46-116) U/L Troponin I (< or =60) ng/L NT-Pro-B Natriuret Pep (<300) pg/mL 515 H Total Protein (6.4-8.2) g/dL Albumin (3.4-5.0) g/dL Lipase (16-77) U/L Procalcitonin ng/mL Urine Color (Yellow) Urine Clarity (Clear) Urine pH (5-8) Ur Specific [place] (1.005-1.025) Urine Protein (Neg-Trace) mg/dL Urine Ketones (Negative) mg/dL Urine Blood (Negative) Urine Nitrite (Negative) Urine Bilirubin (Negative) Urine Urobilinogen (Up to 0.2) mg/dL Ur Leukocyte Esterase (Negative) Urine RBC (0-2) HPF Urine WBC (0-5) HPF Ur Epithelial Cells (Negative) HPF Urine Crystals (Negative) HPF Urine Bacteria (Negative) HPF Urine Casts (Negative) LPF Urine Mucus (Negative) Ur Culture Indicated? Urine Glucose (Negative) mg/dL COVID-19 Source Nasopharynx SARS-CoV-2 (PCR) (Negative) Negative Influenza Type A (PCR) (Negative) Negative Influenza Type B (PCR) (Negative) Negative RSV (PCR) (Negative) Negative Quality:[facility] Related Social Needs: No Data to Display Sign Out Sign Out Data: Sign Out Comment: Vomiting for 4 days. Febrile elevated white count. Pending x-ray of the chest and abdomen to evaluate for pneumonia or obstruction. Cellulitis present on the left lower extremity. 2 g of ceftriaxone given here. Hypomagnesemia, 2 g of magnesium ordered. Reassess after imaging and fluids. If able to tolerate p.o., vital signs have improved, patient feels better may be a candidate for discharge with Keflex and Zofran. If no significant clinical improvement may require admission Last updated by Sin Wolfe DO at 08/08/23 23:21 Discharge Plan Disposition Patient Disposition: Home Condition: Good Discharge Details Clinical Impression: Nausea & vomiting, Dehydration, Hypomagnesemia, Cellulitis Primary Care Provider: Zach Bustillo ED Provider: Maryanne Hanson Home Meds and New Rx's Prescriptions: New ondansetron 4 mg tablet,disintegrating 4 mg PO Q8H PRNQty: 7 0RF cephalexin 500 mg capsule 500 mg PO QID Qty: 40 0RF Continued aspirin [Aspir-81] 81 MG tablet,delayed release (DR/EC) 81 mg PO DAILY amlodipine 10 MG tablet 10 mg PO DAILY hydrochlorothiazide 25 MG tablet 25 mg PO DAILY albuterol sulfate [ProAir HFA] 200 PUFF HFA aerosol inhaler 2 puff Inhalation Q8H PRN PRN lisinopril 40 MG tablet 40 mg PO DAILY atenolol 50 MG tablet 50 mg PO DAILY prednisone 20 mg tablet 40 mg PO DAILY Qty: 6 0RF atorvastatin 40 mg Tablet 40 mg PO QPM metformin 850 mg Tablet 850 mg PO BID hydrocodone-acetaminophen 5-325 mg tablet 1 tab PO DAILY Patient Comments: TAKE 1 TABLET BY MOUTH EVERY 6 HOURS NEEDED. MAX DAILY DOSE 4 TABLETS. MUST LAST 28 DAYS fluticasone propion-salmeterol [Advair HFA] 115-21 mcg/actuation HFA aerosol inhaler 1 puff INHALATION DAILY Patient Comments: INHALE 2 PUFFS BY MOUTH TWICE DAILY sumatriptan succinate 50 mg Tablet 50 mg PO ONCE hydrochlorothiazide 12.5 mg capsule 12.5 mg PO ONCE Discontinued budesonide-formoterol [Symbicort] 1 PUFF HFA aerosol inhaler 1 puff Inhalation BID Patient Comments: not using-changed by provider Discharge Instructions Instructions: Cellulitis (Skin Infection), Adult ED Additional Instructions: Take the antibiotic cehpalexin four times a day for the next 10 days. You can take ondanestron up to every 8 hours as needed for vomiting. Call your primary care doctor tomorrow to schedule an appointment for as soon as possible, no later than Thursday, to follow up on your visit. Please discuss your symptoms and mention that you may be developing heart failure and you should be evaluated for an iliac aneurysem. Return to the emergency department for new or worsening symptoms including any difficulty breathing, feeling like you are going to pass out, chest pain, if you continue vomiting, or if you have any other concerns. Referrals: Zach Bustillo [Primary Care Provider] -
--- NOTE | 2023-08-08 23:35 | DI.RAD_ITS ---
Exam(s) XR CHEST 2V PA LATERAL EXAM: XR CHEST 2V PA LATERAL CLINICAL HISTORY: fever, eval for pneumonia TECHNIQUE: 2D digital imaging was performed. Two views. COMPARISON: CR CHEST 2 VIEWS PA,LAT from 10/29/2014 CR,XR XR ABDOMEN FLAT PLATE from 08/08/2023 FINDINGS: Exam was performed in stretcher. Lungs suboptimally inflated. Exam is under penetrated. HEART: Normal size. Aorta: Not dilated. Calcified. PULMONARY VASCULATURE: Prominent. MEDIASTINUM: Unremarkable. LUNGS: Increased interstitial markings. Findings could represent pulmonary edema. PLEURAL SPACE: No pleural effusion or pneumothorax. BONE:Unremarkable for age. SOFT TISSUES: Unremarkable. IMPRESSION: Limited exam due to poor pulmonary inflation and under penetration. Probable CHF. DATA REPOSITORY: RADIATION DOSE DELIVERED:
--- NOTE | 2023-08-08 23:35 | DI.RAD_ITS ---
Exam(s) XR ABDOMEN FLAT PLATE EXAM: 2D digital imaging was performed. CLINICAL HISTORY: vomiting, r/o obstruction. COMPARISON: No exams were available for comparison TECHNIQUE: Supine views of the abdomen performed. FINDINGS: BOWEL GAS PATTERN: Stomach and small bowel nondistended. Large quantity of stool, consistent with co nstipation. CALCIFICATIONS: No radiopaque calcifications. OSSEOUS STRUCTURES: Severe degenerative changes in the spine. OTHER FINDINGS: Right iliac artery aneurysm. IMPRESSION: 1. Nonobstructive bowel gas pattern. Increased stool consistent with constipation. 2. No radiopaque calculi. DATA REPOSITORY: RADIATION DOSE DELIVERED:
[2023-08-08] MEDS: cefTRIAXone 2 GM/50 ML BAG IVPB (23:41)
[2023-08-08] MEDS: MAGNESIUM SULFATE 2 GM/50 ML BAG IVINF (23:42)
[2023-08-08 23:47] LABS: COVID-19 PCR Negative (Negative); Influenza A PCR Negative (Negative); Influenza B PCR Negative (Negative); RSV PCR Negative (Negative)
[2023-08-08 23:52] LABS: Source Nasopharynx
[2023-08-09] VITALS (35 sets, daily range): BP systolic 108–117; BP diastolic 48–66; PULSE 63–87; RESP 17–26; O2SAT 87–96
--- NOTE | 2023-08-09 01:34 | DI.VRAD_ITS ---
PROCEDURE INFORMATION: Exam: XR Abdomen Exam date and time: 08/08/2023 11:26 PM Age: 72 years old Clinical indication: Patient HX: Vomiting, R/O obstruction TECHNIQUE: Imaging protocol: Radiologic exam of the abdomen. Views: Frontal supine view of the abdomen. 1 View. COMPARISON: CR XR CHEST 2V PA LATERAL 08/08/2023 11:20 PM FINDINGS: Heart/Mediastinum: There is no evidence of lymphadenopathy. Lungs: Mild atelectasis at the lung bases. Gastrointestinal tract: Copious amount of stool in colon consistent with constipation. No definitive evidence of bowel obstruction Intraperitoneal space: There is no free intraperitoneal air. Vasculature: Vascular calcification consistent with atherosclerotic peripheral vascular disease. Probable 4.2 cm right common iliac artery aneurysm. Consider CT angiography for further evaluation. Bones/joints: The lumbar spine demonstrates moderate degenerative changes. There are mild degenerative changes of the sacroiliac joints. There are mild degenerative changes of the hip joints. IMPRESSION: Probable 4.2 cm right common iliac artery aneurysm. Consider CT angiography for further evaluation. Constipation. Dictated and Authenticated by: Phil Brumfield MD. Ordering:TYRON Vogt MD
--- NOTE | 2023-08-09 01:35 | DI.VRAD_ITS ---
PROCEDURE INFORMATION: Exam: XR Chest Exam date and time: 08/08/2023 11:20 PM Age: 72 years old Clinical indication: Patient HX: Fever, eval for pneumonia TECHNIQUE: Imaging protocol: Radiologic exam of the chest. Views: 2 views. COMPARISON: No relevant prior studies available. FINDINGS: Lungs: There is pulmonary venous congestion. There is diffuse interstitial edema. Underlying inflammatory or infectious process/pneumonia not excluded. Pleural spaces: There are no pleural effusions. No evidence of pneumothorax. Heart/Mediastinum: The heart is enlarged. There is prominence of the mediastinum. Bones/joints: The skeletal structures and soft tissues show no evidence of fracture or other acute processes. Soft tissues: The soft tissues of the extrathoracic region are unremarkable. IMPRESSION: 1. Probable congestive heart failure. 2. There is diffuse interstitial edema. Underlying inflammatory or infectious process/pneumonia not excluded. Dictated and Authenticated by: Phil Brumfield MD. Ordering:TYRON Vogt MD
[2023-08-09 02:27] LABS: Lactate 1.6 mmol/L (0.6-1.4)
[2023-08-09 02:50] LABS: NT-proBNP 515 pg/mL (<300)
[2023-08-09] MEDS: Furosemide 20 MG/2 ML VIAL IVP (03:15)
[2023-08-09] MEDS: Acetaminophen 325 MG TAB 650 MG PO (05:52)
== END 2023-08-09 09:07 | disposition home or self-care (01) ==
LOC: ER 08-09 07:24
PROVIDERS: Student in an Organized Health Care Education/Training Program; Emergency Provider Student in an Organized Health Care Education/Training Program; PCP Internal Medicine
DX: R11.2 Nausea with vomiting, unspecified (principal); E86.0 Dehydration; E83.42 Hypomagnesemia; L03.116 Cellulitis of left lower limb; R60.0 Localized edema
CPT/HCPCS: 00123; 51702; 80053; 83690; 84145; 87637; 93005; 96361; 96365; 96366; 96367; 96375; 99284; 71046; 74018; 81003; 81015; 83605; 83735; 83880; 84484; 85025; 93010; 99283; J0696; J1941; J3475

== ENCOUNTER 2023-08-13 13:57 | Outpatient (REF) | payer MEDICARE, SELFPAY ==
[2023-08-13 19:10] LABS: HCT 40.6 % (40.0-50.0); HGB 14.2 g/dL (13.5-17.5); MCH 31.3 pg (27.0-33.0); MCV 89 fL (80-95); MPV 11.7 fL (8.0-11.0); Platelet Count 159 10^3/uL (130-400); RBC 4.54 10^6/uL (4.36-5.78); RDW 13.8 % (11.8-14.1); RDW-SD 45.6 fL; WBC 19.78 10^3/uL (4.4-10.8)
[2023-08-13 19:17] LABS: Anion Gap 11.6 mmol/L (3-11); BUN 62 mg/dL (7-18); CO2 26.4 mmol/L (21.0-32.0); CREATININE 1.9 mg/dL (0.70-1.30); Chloride 101 mmol/L (98-107); Estimated GFR 37.25 (mL/min/1.73m2); Glucose 117 mg/dL (74-106); Potassium 3.6 mmol/L (3.5-5.1); Sodium 139 mmol/L (136-145)
[2023-08-13 19:18] LABS: C-Reactive Protein > 25.00 mg/dL (<or=0.5)
== END 2023-08-13 13:58 | disposition home or self-care (01) ==
LOC: NCHCN 13:57
PROVIDERS: PCP Internal Medicine; Visit Provider Internal Medicine
DX: L03.116 Cellulitis of left lower limb (principal); R79.89 Other specified abnormal findings of blood chemistry; R79.82 Elevated C-reactive protein (CRP)
CPT/HCPCS: 80048; 85027; 86140

== ENCOUNTER 2023-08-21 10:27 | Outpatient (REF) | payer MEDICARE, SELFPAY ==
[2023-08-21 18:38] LABS: HCT 42.2 % (40.0-50.0); HGB 13.9 g/dL (13.5-17.5); MCHC 32.9 % (32.0-36.0); MCV 94 fL (80-95); MPV 10.6 fL (8.0-11.0); Platelet Count 325 10^3/uL (130-400); RBC 4.49 10^6/uL (4.36-5.78); RDW 14.2 % (11.8-14.1); RDW-SD 49.2 fL; WBC 11.83 10^3/uL (4.4-10.8)
[2023-08-21 18:49] LABS: Anion Gap 8.3 mmol/L (3-11); BUN 29 mg/dL (7-18); CO2 26.7 mmol/L (21.0-32.0); CREATININE 1.9 mg/dL (0.70-1.30); Calcium 8.9 mg/dL (8.5-10.1); Chloride 106 mmol/L (98-107); Estimated GFR 37.25 (mL/min/1.73m2); Glucose 121 mg/dL (74-106); Potassium 4.7 mmol/L (3.5-5.1); Sodium 141 mmol/L (136-145)
== END 2023-08-21 10:28 | disposition home or self-care (01) ==
LOC: NCHCN 10:27
PROVIDERS: PCP Internal Medicine; Visit Provider Nurse Practitioner Family
DX: L03.116 Cellulitis of left lower limb (principal); R79.89 Other specified abnormal findings of blood chemistry; R79.82 Elevated C-reactive protein (CRP)
CPT/HCPCS: 80048; 85027; 86140

== ENCOUNTER 2023-09-19 17:13 | Emergency (ER) | payer MEDICARE, SELFPAY ==
--- OUTSIDE RECORDS SUMMARY | 2023-09-19 17:20 | XMS_ITS | Encounter Summary ---
Author Organization [facility] Address [address] [place] [address] Care Team Providers Care Heavy Equipment Plumbing Supervisor Name Role Phone Unavailable Primary Care Provider Unavailabl e Encounter Details Date Type Department Care Team (Late st Contact Info) Description 02/18/2005 14:44 EST Hospital Encounter [facility] - [facility] [address] [place] [address] Roc Al MD Social History Tobacco Use Types Packs/Day Years Used Date Smoking Tobacco: Never Assessed Sex and Gender Information Value Date Recorded Sex Assigned at Not on file Gender Identity Not on file Sexual Orientation Not on file documented as of this encounter Plan of Treatment Not on file documented as of this encounter Procedures Procedure Name Priority Date/Time Associated Diagnosis Comments HEMOGLOBIN A1C Routine 02/18/2005 14:17 EST LIPID PROFILE (INCLUDES CHOLESTEROL, TRIGLYCERIDES, HDL, LDL) Routine 02/18/2005 14:17 EST COMPREHENSIVE METABOLIC PANEL (CMP) Routine 02/18/2005 14:17 EST documented in this encounter Results * (ABNORMAL) LIPID PROFILE (INCLUDES CHOLESTEROL, TRIGLYCERIDES, HDL, LDL) (02/18/2005 14:17 EST) Cholesterol 173 mg/dl [facility] Comment: Desirable:<200 Borderline:200-239 High Risk:>[id number] Triglycerides 166(H) 35 - 160 mg/dl [facility] HDL 53 mg/dl [facility] Comment: Highly Desirable:>60 Desirable:35-60 High Risk:<35 LDL, Calculated 87 mg/dl [facility] Comment: Desirable:<130 Borderline:130-159 High Risk:>[id number] Chol/HDL Ratio 3.3 [facility] Fasting? No [facility] 02/18/2005 14:1 7 EST 02/18/2005 16:53 EST Roc Al MD CHEMISTRY & BLOOD GA S ORDERABLES Performing Organization Address [facility] Co de Phone Number [facility] [address] [place] [address] * COMPREHENSIVE METABOLIC PANEL (02/18/2005 14:17 EST) Potassium 4.2 3.5 - 5.0 mEq/L [facility] Sodium 137 136 - 145 mEq/L [facility] Chloride 100 96 - 110 mEq/L [facility] CO2 31 24 - 32 mEq/L [facility] Total Alkaline Phosphatase 76 38 - 126 U/L [facility] Bilirubin, Total <0.5 0.2 - 1.3 mg/dl [facility] AST 29 15 - 46 U/L [facility] ALT 40 21 - 72 U/L [facility] Albumin 4.4 3.4 - 4.9 g/dl [facility] Total Protein 7.4 6.5 - 8.3 g/dl [facility] Creatinine 1.0 0.7 - 1.5 mg/dl [facility] BUN 16 10 - 26 mg/dl [facility] Calcium 9.4 8.5 - 10.5 mg/dl [facility] Calculated Calcium 9.4 8.5 - 10.5 mg/dl [facility] Glucose, Serum 86 70 - 110 mg/dl [facility] Fasting? No [facility] Albumin/Globulin Ratio 1.5 [facility] 02/18/2005 14:1 7 EST 02/18/2005 16:53 EST Roc Al MD CHEMISTRY & BLOOD GA S ORDERABLES Performing Organization Address [facility] Co de Phone Number [facility] [address] [place] [address] * HEMOGLOBIN A1C (02/18/2005 14:17 EST) Hemoglobin A1C 6.7 % [facility] Comment: Reference Range: <6% Normal Range <7% Recommended goal by ADA guidelines 7-8% Suboptimal by ADA guidelines >8% Further action suggested by ADA guidelines 02/18/2005 14:1 7 EST 02/18/2005 16:53 EST Roc Al MD CHEMISTRY & BLOOD GA S ORDERABLES [facility] [address] [place] [address] documented in this encounter Visit Diagnoses Not on filedocumented in this encounter
--- OUTSIDE RECORDS SUMMARY | 2023-09-19 17:20 | XMS_ITS | Encounter Summary ---
Author Organization [facility] Address [address] [place] [address] Care Team Providers Care Financial Writer Name Role Phone Unavailable Primary Care Provider Unavailabl e Encounter Details Date Type Department Care Team (Late st Contact Info) Description 06/07/[address] [address] Unknown, Doctor Essential hypertension, benign; Tobacco use disorder; Obesity, unspecified; Unspecified sleep apnea; DM w/o complication type II; Gout, unspecified; Other and unspecified hyperlipidemia Social History Tobacco Use Types Packs/Day Years Used Date Smoking Tobacco: Never Assessed Sex and Gender Information Value Date Recorded Sex Assigned at Not on file Gender Identity Not on file Sexual Orientation Not on file documented as of this encounter Plan of Treatment Not on file documented as of this encounter Visit Diagnoses Diagnosis Essential hypertension, benign Tobacco use disorder Obesity, unspecified Unspecified sleep apnea Type II or unspecified type diabetes mellitus without mention of complication, not stated as uncontrolled Gout, unspecified Other and unspecified hyperlipidemia documented in this encounter
--- OUTSIDE RECORDS SUMMARY | 2023-09-19 17:20 | XMS_ITS | Encounter Summary ---
Author Organization [facility] Address [address] [place] [address] Care Team Providers Care Enterprise Systems Architect Name Role Phone Unavailable Primary Care Provider Unavailabl e Encounter Details Date Type Department Care Team (Late st Contact Info) Description 08/26/2001 12:59 EDT Hospital Encounter [facility] - Other [address] [place] [address] Arvind Banegas MD Unknown, Provider, Social History Tobacco Use Types Packs/Day Years Used Date Smoking Tobacco: Never Assessed Sex and Gender Information Value Date Recorded Sex Assigned at Not on file Gender Identity Not on file Sexual Orientation Not on file documented as of this encounter Plan of Treatment Not on file documented as of this encounter Procedures Procedure Name Priority Date/Time Associated Diagnosis Comments URINALYSIS WITH MICROSCOPIC IF POSITIVE Routine 08/26/2001 9:14 EDT UA REFLEX Routine 08/26/2001 9:14 EDT URINE [id number] RATIO (ACR) Routine 08/26/2001 9:14 EDT HEMOGLOBIN A1C Routine 08/26/2001 9:14 EDT LIPID PROFILE (INCLUDES CHOLESTEROL, TRIGLYCERIDES, HDL, LDL) Routine 08/26/2001 9:14 EDT COMPREHENSIVE METABOLIC PANEL (CMP) Routine 08/26/2001 9:14 EDT documented in this encounter Results * UA REFLEX (08/26/2001 9:14 EDT) UA Billing Microscopic not indicated. [facility] 08/26/2001 9:14 EDT 08/26/2001 17:14 EDT Arvind Banegas MD URINALYSIS ORDERABLE S Performing Organization Address [facility] de Phone Number [facility] [address] [place] [address] * (ABNORMAL) MICROALBUMIN (08/26/2001 9:14 EDT) Creatinine, Urn Marshall 131.2 mg/dl [facility] Ur Albumin mg/dl 8.0(H) <1.9 mg/dl [facility] Ur Alb ug/mg Crea 61.0 ug/mg Crea [facility] Comment: Normal: ??<30 ug/mg Creat Microalbuminuria: ??30-300 ug/mg Creat Clinical albuminuria: ??>300 ug/mg Creat 08/26/2001 9:14 EDT 08/26/2001 17:14 EDT Arvind Banegas MD CHEMISTRY & BLOOD GA S ORDERABLES Performing Organization Address [facility] de Phone Number [facility] [address] [place] [address] * (ABNORMAL) URINALYSIS (08/26/2001 9:14 EDT) Color, UA Yellow [facility] Clarity, UA Clear [facility] Glucose, UA Norm NORM [facility] Bilirubin, UA Neg NEG [facility] Ketones, UA Neg NEG [facility] Specific [place], Urine 1.020 1.005 - 1.02 [facility] Blood, UA Neg NEG [facility] pH, UA 5.5 5.0 - 9.0 [facility] Protein, UA Neg NEG [facility] Urobilinogen, UA 1.0(A) NORM mg/dL [facility] Nitrite, UA Neg NEG [facility] Leuk Esterase Neg NEG [facility] 08/26/2001 9:14 EDT 08/26/2001 17:14 EDT Arvind Banegas MD URINALYSIS ORDERABLE S Performing Organization Address [facility] Co de Phone Number [facility] [address] [place] [address] * (ABNORMAL) LIPID PROFILE (INCLUDES CHOLESTEROL, TRIGLYCERIDES, HDL, LDL) (08/26/2001 9:14 EDT) Cholesterol 232 mg/dl [facility] Comment: Desirable:<200 Borderline:200-239 High Risk:>[id number] Fasting Triglycerides 193(H) 35 - 160 mg/dl [facility] Comment:Fasting HDL 47 mg/dl [facility] Comment: Highly Desirable:>60 Desirable:35-60 High Risk:<35 Fasting LDL, Calculated 146 mg/dl [facility] Comment: Desirable:<130 Borderline:130-159 High Risk:>[id number] Fasting Chol/HDL Ratio 4.9 Fasting [facility] 08/26/2001 9:14 EDT 08/26/2001 17:14 EDT Arvind Banegas MD CHEMISTRY & BLOOD GA S ORDERABLES Performing Organization Address [facility] Co de Phone Number [facility] [address] [place] [address] * (ABNORMAL) COMPREHENSIVE METABOLIC PANEL (08/26/2001 9:14 EDT) Potassium 4.3 3.5 - 5.0 mEq/L [facility] Comment:Fasting Sodium 141 136 - 145 mEq/L [facility] Comment:Fasting Chloride 99 96 - 110 mEq/L [facility] Comment:Fasting CO2 30 24 - 30 mEq/L [facility] Comment:Fasting Total Alkaline Phosphatase 62 38 - 126 U/L [facility] Comment:Fasting Bilirubin, Total 0.6 0.2 - 1.3 mg/dl [facility] Comment:Fasting AST 39 8 - 50 U/L [facility] Comment:Fasting ALT 71 15 - 75 U/L [facility] Comment:Fasting Albumin 4.1 3.0 - 5.5 g/dl [facility] Comment:Fasting Total Protein 7.4 6.0 - 8.5 g/dl [facility] Comment:Fasting Creatinine 1.2 0.7 - 1.5 mg/dl [facility] Comment:Fasting BUN 18 10 - 26 mg/dl [facility] Comment:Fasting Calcium 9.3 8.5 - 10.5 mg/dl [facility] Comment:Fasting Calculated Calcium 9.6 8.5 - 10.5 mg/dl [facility] Comment:Fasting Glucose, Serum 124(H) 70 - 110 mg/dl [facility] Comment:Fasting Albumin/Globulin Ratio 1.2 Fasting [facility] 08/26/2001 9:14 EDT 08/26/2001 17:14 EDT Arvind Banegas MD CHEMISTRY & BLOOD GA S ORDERABLES Performing Organization Address [facility] de Phone Number [facility] [address] [place] [address] * HEMOGLOBIN A1C (08/26/2001 9:14 EDT) Hemoglobin A1C 8.2 % [facility] Comment: <6% Normal Range <7% Recommended goal by ADA guidelines 7-8% Suboptimal by ADA guidelines >8% Further action suggested by ADA guidelines 08/26/2001 9:14 EDT 08/26/2001 17:14 EDT Arvind Banegas MD CHEMISTRY & BLOOD GA S ORDERABLES Performing Organization Address [facility] Co de Phone Number [facility] [address] [place] [address] documented in this encounter Visit Diagnoses Not on filedocumented in this encounter
--- OUTSIDE RECORDS SUMMARY | 2023-09-19 17:20 | XMS_ITS | Encounter Summary ---
Author Organization [facility] Address [address] [place] [address] Care Team Providers Care Patient Safety Sitter Name Role Phone Unavailable Primary Care Provider Unavailabl e Encounter Details Date Type Department Care Team (Latest Contact Info) Description 01/15/2000 9:50 EST - 01/15/2000 11:59 EST Hospital Encounter [facility] - Other [address] [place] [address] Roc Al MD Unknown, Provider, Discharge Disposition: Auto Discharge Social History Tobacco Use Types Packs/Day Years Used Date Smoking Tobacco: Never Assessed Sex and Gender Information Value Date Recorded Sex Assigned at Not on file Gender Identity Not on file Sexual Orientation Not on file documented as of this encounter Discharge Disposition Disposition Code Departure Means Destination Auto Discharge documented in this encounter Plan of Treatment Not on file documented as of this encounter Procedures Procedure Name Priority Date/Time Associated Diagnosis Comments HEMOGLOBIN A1C Routine 01/15/2000 10:15 EST HEPATIC FUNCTION PANEL (ALB,ALK PHOS,ALT,AST,DBIL,TO T CHLOÉ,TOT PROT) Routine 01/15/2000 10:15 EST LIPID PROFILE (INCLUDES CHOLESTEROL, TRIGLYCERIDES, HDL, LDL) Routine 01/15/2000 10:15 EST BASIC METABOLIC PANEL (BMP) Routine 01/15/2000 10:15 EST documented in this encounter Results * (ABNORMAL) LIPID PROFILE (INCLUDES CHOLESTEROL, TRIGLYCERIDES, HDL, LDL) (01/15/2000 10:15 EST) Cholesterol 221 mg/dl [facility] Comment: Desirable:<200 Borderline:200-239 High Risk:>el=071 Fasting Triglycerides 256(H) 35 - 160 mg/dl [facility] Comment:Fasting HDL 43 mg/dl [facility] Comment: Highly Desirable:>60 Desirable:35-60 High Risk:<35 Fasting LDL, Calculated 127 mg/dl [facility] Comment: Desirable:<130 Borderline:130-159 High Risk:>va=121 Fasting Chol/HDL Ratio 5.1 Fasting [facility] 01/15/2000 10:1 5 EST 01/15/2000 17:11 EST Roc Al MD CHEMISTRY & BLOOD GA S ORDERABLES Performing Organization Address [facility] Co de Phone Number [facility] [address] [place] [address] * (ABNORMAL) LIVER FUNCTION TESTS (01/15/2000 10:15 EST) Albumin 4.1 3.0 - 5.5 g/dl [facility] Comment:Fasting Total Protein 7.3 6.0 - 8.5 g/dl [facility] Comment:Fasting Total Alkaline Phosphatase 70 38 - 126 U/L [facility] Comment:Fasting ALT 97(H) 15 - 75 U/L [facility] Comment:Fasting AST 47 8 - 50 U/L [facility] Comment:Fasting Unconjugated Bilirubin 0.4 0.1 - 1.1 mg/dl [facility] Comment:Fasting Conjugated Bilirubin 0.0 0.0 - 0.3 mg/dl [facility] Comment:Fasting Bilirubin, Total 0.5 0.2 - 1.3 mg/dl [facility] Comment:Fasting 01/15/2000 10:1 5 EST 01/15/2000 17:11 EST Roc Al MD CHEMISTRY & BLOOD GA S ORDERABLES Performing Organization Address City/[facility]/ZIP Co de Phone Number [facility] [address] [place] [address] * BASIC METABOLIC PANEL (01/15/2000 10:15 EST) Sodium 143 136 - 145 mEq/L [facility] Comment:Fasting Potassium 4.3 3.5 - 5.0 mEq/L [facility] Comment:Fasting Chloride 103 96 - 110 mEq/L [facility] Comment:Fasting CO2 30 24 - 30 mEq/L [facility] Comment:Fasting BUN 14 10 - 26 mg/dl [facility] Comment:Fasting Creatinine 1.1 0.7 - 1.5 mg/dl [facility] Comment:Fasting Calcium 9.2 8.5 - 10.5 mg/dl [facility] Comment:Fasting Calculated Calcium 9.5 8.5 - 10.5 mg/dl [facility] Comment:Fasting Glucose, Serum 105 70 - 110 mg/dl [facility] Comment:Fasting 01/15/2000 10:1 5 EST 01/15/2000 17:11 EST Roc lA MD CHEMISTRY & BLOOD GA S ORDERABLES Performing Organization Address City/[facility] Co de Phone Number [facility] [address] [place] [address] * HEMOGLOBIN A1C (01/15/2000 10:15 EST) Hemoglobin A1C 6.6 % [facility] Comment: Glucose Control Index Poor=greater than 10% Fair=9-10% Good=8-9% Excellent=7-8% Near Normal=6-7% Non-Diabetic=less than 6% Fasting 01/15/2000 10:1 5 EST 01/15/2000 17:11 EST Roc Al MD CHEMISTRY & BLOOD GA S ORDERABLES [facility] [address] [place] [address] documented in this encounter Visit Diagnoses Not on filedocumented in this encounter
--- OUTSIDE RECORDS SUMMARY | 2023-09-19 17:20 | XMS_ITS | Encounter Summary ---
Author Organization [facility] Address [address] [place] [address] Care Team Providers Care Aircraft Navigator Name Role Phone Unavailable Primary Care Provider Unavailabl e Encounter Details Date Type Department Care Team (Late st Contact Info) Description 04/25/2003 Results Only [facility] Medicine [address] [address] Roc Al MD Social History Tobacco Use [...] Date/Time Associated Diagnosis Comments HEMOGLOBIN A1C Routine 04/25/2003 8:37 EST LIPID PROFILE (INCLUDES CHOLESTEROL, TRIGLYCERIDES, HDL, LDL) Routine 04/25/2003 8:37 EST COMPREHENSIVE METABOLIC PANEL (CMP) Routine 04/25/2003 8:37 EST documented in this encounter Results * (ABNORMAL) LIPID PROFILE (INCLUDES CHOLESTEROL, TRIGLYCERIDES, HDL, LDL) (04/25/2003 8:37 EST) Cholesterol 243 mg/dl [facility] Comment: Desirable:<200 Borderline:200-239 High Risk:>nl=698 Triglycerides 324(H) 35 - 160 mg/dl [facility] HDL 40 mg/dl [facility] Comment: Highly Desirable:>60 Desirable:35-60 High Risk:<35 LDL, Calculated 138 mg/dl [facility] Comment: Desirable:<130 Borderline:130-159 High Risk:>hi=065 Chol/HDL Ratio 6.1 [facility] 04/25/2003 8:37 EST 04/25/2003 11:16 EST Roc Al MD CHEMISTRY & BLOOD GA S ORDERABLES Performing Organization Address [facility] de Phone Number [facility] [address] [place] [address] * (ABNORMAL) COMPREHENSIVE METABOLIC PANEL (04/25/2003 8:37 EST) Potassium 4.4 3.5 - 5.0 mEq/L [facility] Sodium 137 136 - 145 mEq/L [facility] Chloride 98 96 - 110 mEq/L [facility] CO2 27 24 - 32 mEq/L [facility] Total Alkaline Phosphatase 109 38 - 126 U/L [facility] Bilirubin, Total <0.5 0.2 - 1.3 mg/dl [facility] AST 39 15 - 46 U/L [facility] ALT 69 21 - 72 U/L [facility] Albumin 4.0 3.4 - 4.9 g/dl [facility] Total Protein 6.8 6.5 - 8.0 g/dl [facility] Creatinine 1.1 0.7 - 1.5 mg/dl [facility] BUN 17 10 - 26 mg/dl [facility] Calcium 8.7 8.5 - 10.5 mg/dl [facility] Calculated Calcium 9.1 8.5 - 10.5 mg/dl [facility] Glucose, Serum 399(H) 70 - 110 mg/dl [facility] Albumin/Globulin Ratio 1.4 [facility] 04/25/2003 8:37 EST 04/25/2003 11:16 EST Roc Al MD CHEMISTRY & BLOOD LA S ORDERABLES Performing Organization Address [facility] Co de Phone Number [facility] [address] [place] [address] * HEMOGLOBIN A1C (04/25/2003 8:37 EST) Hemoglobin A1C 8.7 % [facility] Comment: <6% Normal Range <7% Recommended goal by ADA guidelines 7-8% Suboptimal by ADA guidelines >8% Further action suggested by ADA guidelines 04/25/2003 8:37 EST 04/25/2003 11:16 EST Roc Al MD CHEMISTRY & BLOOD GA S ORDERABLES [facility] [address] [place] [address] documented in this encounter Visit Diagnoses Not on filedocumented in this encounter
--- OUTSIDE RECORDS SUMMARY | 2023-09-19 17:20 | XMS_ITS | Encounter Summary ---
Author Organization [facility] Address [address] [place] [address] Care Team Providers Care Auto Service Writer Name Role Phone Unknown, Provider Primary Care Provider [phone] Encounter Details Date Type Department Care Team ([facility] st Contact Info) Description 01/28/2021 Transcribe Orders OUTSIDE PROVIDER Agustin Carr, MARTÍN [address] [place] [address] Spasm of muscle (Primary Dx); Gout involving toe of right foot, unspecified cause, unspecified chronicity; Routine general medical examination at a health care facility Social History Tobacco Use Types Packs/Day Years Used Date Smoking Tobacco: Never Assessed Sex and Gender Information Value Date Recorded Sex Assigned at Not on file Gender Identity Not on file Sexual Orientation Not on file documented as of this encounter Plan of Treatment Scheduled Orders Name Type Priority Associated Diagnoses Orde r Schedule URIC ACID Lab Routine Spasm of Muscle Gout Involving Toe Of Right Foot, Unspecified Cause, Unspecified Chronicity Routine General Medical Examination at a Health Care Facility Expected: 01/28/2021 (Approximate), Expires: 01/28/2022 [facility] Routine Spasm of Muscle Gout Involving Toe Of Right Foot, Unspecified Cause, Unspecified Chronicity Routine General Medical Examination at a Health Care Facility Ordered: 01/28/2021 documented as of this encounter Visit Diagnoses Diagnosis Spasm of muscle- Primary Gout involving toe of right foot, unspecified cause, unspecified chronicity Routine general medical examination at a health care facility documented in this encounter Care Teams Auto Service Writer Relationship Specialty Start Date End Date Unknown, Provider, PCP - General 12/25/14 documented as of this encounter
--- OUTSIDE RECORDS SUMMARY | 2023-09-19 17:20 | XMS_ITS | Encounter Summary ---
Author Organization [facility] Address [address] [place] [address] Care Team Providers Care Housekeeping Supervisor Hotel Name Role Phone Unavailable Primary Care Provider Unavailabl e Encounter Details Date Type Department Care Team (Latest Contact Info) Description 04/25/2003 14:12 EST Hospital Encounter [facility] - Other [address] [place] [address] Roc Al MD Discharge Disposition: Auto Discharge Social History Tobacco [...] documented as of this encounter Visit Diagnoses Not on filedocumented in this encounter
--- OUTSIDE RECORDS SUMMARY | 2023-09-19 17:20 | XMS_ITS | Clinical Summary ---
Author Organization [facility] Address [address] [place] [address] Care Team Providers Care Geologist Name Role Phone Unknown, Provider Primary Care Provider [phone] Allergies No known active allergies Active Problems Problem Noted Date Diagnosed Date Essential hypertension, benign Tobacco use disorder Obesity Overview: ICD10 Update Auto Replacement Sleep apnea Overview: ICD10 Update Auto Replacement Diabetes ([facility]) Overview: ICD10 Update Auto Replacement Gout Overview: ICD10 Update Auto Replacement Hyperlipidemia Overview: ICD10 Update Auto Replacement Medical History Medical History Date Comments Essential hypertension, benign Tobacco use disorder Obesity, unspecified Unspecified sleep apnea Type II or unspecified type diabetes mellitus without mention of complication, not stated as uncontrolled Gout, unspecified Other and unspecified hyperlipidemia Social History Tobacco Use Types Packs/Day Years Used Date Smoking Tobacco: Never Assessed Sex and Gender Information Value Date Recorded Sex Assigned at Not on file Gender Identity Not on file Sexual Orientation Not on file Obstetrics History Plan of Treatment Health Maintenance Due Date Last Done Comments Hepatitis C Screen 1950 RSV Immunization ( o r 60+ Years) (1 - 1-dose 60+ series) 2011 Fall Risk Screening 09/26/2016 COVID-19 Vaccine (2022- season) 2022 Care Teams Geologist Relationship Specialty Start Date End Date Unknown, Provider, PCP - General 12/25/14
--- OUTSIDE RECORDS SUMMARY | 2023-09-19 17:20 | XMS_ITS | Encounter Summary ---
Author Organization [facility] Address [address] [place] [address] Care Team Providers Care Dining Manager Name Role Phone Unavailable Primary Care Provider Unavailabl e Encounter Details Date Type Department Care Team (Late st Contact Info) Description 01/26/2006 13:26 EST Hospital Encounter [facility] [address] [place] [address] Roc Al MD Social History Tobacco Use [...] Date/Time Associated Diagnosis Comments HEMOGLOBIN A1C Routine 01/26/2006 14:29 EST LIPID PROFILE (INCLUDES CHOLESTEROL, TRIGLYCERIDES, HDL, LDL) Routine 01/26/2006 14:29 EST COMPREHENSIVE METABOLIC PANEL (CMP) Routine 01/26/2006 14:29 EST documented in this encounter Results * (ABNORMAL) LIPID PROFILE (INCLUDES CHOLESTEROL, TRIGLYCERIDES, HDL, LDL) (01/26/2006 14:29 EST) Cholesterol 276 mg/dl [facility] Comment: Desirable:<200 Borderline:200-239 High Risk:>pd=[id number] Moderately lipemic Triglycerides 373(H) 35 - 160 mg/dl [facility] Comment:Moderately lipemic HDL 50 mg/dl [facility] Comment: Highly Desirable:>60 Desirable:35-60 High Risk:<35 Moderately lipemic LDL, Calculated 151 mg/dl [facility] Comment: Desirable:<130 Borderline:130-159 High Risk:>vc=[id number] Moderately lipemic Chol/HDL Ratio 5.5 Moderately lipemic [facility] Fasting? No [facility] 01/26/2006 14:2 9 EST 01/26/2006 16:59 EST Roc Al MD CHEMISTRY & BLOOD GA S ORDERABLES Performing Organization Address City/State/[facility] Co de Phone Number [facility] [address] [place] [address] * COMPREHENSIVE METABOLIC PANEL (01/26/2006 14:29 EST) Potassium 4.3 3.5 - 5.0 mEq/L [facility] Comment:Moderately lipemic Sodium 141 136 - 145 mEq/L [facility] Comment:Moderately lipemic Chloride 101 96 - 110 mEq/L [facility] Comment:Moderately lipemic CO2 31 24 - 32 mEq/L [facility] Comment:Moderately lipemic Total Alkaline Phosphatase 83 38 - 126 U/L [facility] Comment:Moderately lipemic Bilirubin, Total 0.6 0.2 - 1.3 mg/dl [facility] Comment:Moderately lipemic AST 23 15 - 46 U/L [facility] Comment:Moderately lipemic ALT 28 21 - 72 U/L [facility] Comment:Moderately lipemic Albumin 4.1 3.4 - 4.9 g/dl [facility] Comment:Moderately lipemic Total Protein 7.1 6.5 - 8.3 g/dl [facility] Comment:Moderately lipemic Creatinine 1.19 0.7 - 1.5 mg/dl [facility] Comment:Moderately lipemic GFR, Calculated >60 ml/min/1. 73m2 [facility] Comment:Moderately lipemic BUN 14 10 - 26 mg/dl [facility] Comment:Moderately lipemic Calcium 9.1 8.5 - 10.5 mg/dl [facility] Comment:Moderately lipemic Calculated Calcium 9.4 8.5 - 10.5 mg/dl [facility] Comment:Moderately lipemic Glucose, Serum 76 70 - 100 mg/dl [facility] Comment:Moderately lipemic Fasting? No [facility] Albumin/Globuli n Ratio 1.4 Moderately lipemic [facility] 01/26/2006 14:2 9 EST 01/26/2006 16:59 EST Roc Al MD CHEMISTRY & BLOOD GA S ORDERABLES Performing Organization Address [facility] de Phone Number [facility] [address] [place] [address] * HEMOGLOBIN A1C (01/26/2006 14:29 EST) Hemoglobin A1C 6.0 % [facility] Comment: Reference Range: <6% Normal Range <7% Recommended goal by ADA guidelines 7-8% Suboptimal by ADA guidelines >8% Further action suggested by ADA guidelines 01/26/2006 14:2 9 EST 01/26/2006 16:59 EST Roc Al MD CHEMISTRY & BLOOD GA S ORDERABLES Performing Organization Address [facility] de Phone Number [facility] [address] [place] [address] documented in this encounter Visit Diagnoses Not on filedocumented in this encounter
--- OUTSIDE RECORDS SUMMARY | 2023-09-19 17:20 | XMS_ITS | Encounter Summary ---
Author Organization [facility] Address [address] [place] [address] Care Team Providers Care Legislative Director Name Role Phone Unavailable Primary Care Provider Unavailabl e Encounter Details Date Type Department Care Team (Latest Contact Info) Description 11/12/2001 11:40 EDT - 11/12/2001 11:59 EDT Hospital Encounter [facility] - Other [address] [place] [address] Conchita Robert NP [address] [address] Discharge Disposition: Auto Discharge Social History Tobacco [...] Procedure Name Priority Date/Time Associated Diagnosis Comments TOE 2 OR MORE VIEWS Routine 11/12/2001 1 2:27 EDT HEMAGRAM & DIFF Routine 11/12/2001 11:30 EDT URIC ACID Routine 11/12/2001 11:30 EDT HEMOGLOBIN A1C Routine 11/12/2001 11:30 EDT BASIC METABOLIC PANEL (BMP) Routine 11/12/2001 11:30 EDT documented in this encounter Results * TOE 2 OR MORE VIEWS (11/12/2001 12:27 EDT) Anatomical Region Laterality Modality Other 11/12/2001 12:2 7 EDT Narrative 11/13/2008 4:28 EDT lLT FOOT PAIN AT 1ST MTP,RED,HOT SOLLEN ??R/O PROBABLE GOUT ??R/O BONY A BNORMALITY 11-12-01 LEFT TOES, TWO OR MORE VIEWS (1220 hrs): CLINICAL HISTORY: Left foot pain at first MTP joint, rule out gout or other bony abnormality. Three views were obtained. The soft tissues are normal. There is sclerosis and osteophyte formation involving the base of the proximal phalanx of the first toe. The joint space is preserved. No significant erosive change is identified. IMPRESSION: These findings are nonspecific but can be seen in early gout. D: 11-12-01 T: 11-14-01 Procedure Note Lencho Nguyen MD - 11/13/2008 lLT FOOT PAIN AT 1ST MTP,RED,HOT SOLLEN R/O PROBABLE GOUT R/O BONY A BNORMALITY 11-12-01 LEFT TOES, TWO OR MORE VIEWS (1220 hrs): CLINICAL HISTORY: Left foot pain at first MTP joint, rule out gout or other bony abnormality. Three views were obtained. The soft tissues are normal. There is sclerosis and osteophyte formation involving the base of the proximal phalanx of the first toe. The joint space is preserved. No significant erosive change is identified. IMPRESSION: These findings are nonspecific but can be seen in early gout. D: 11-12-01 T: 11-14-01am Conchita Robert NP IMG DIAGNOSTIC I MAGING ORDERABLES * URIC ACID (11/12/2001 11:30 EDT) Uric Acid 8.6 3.9 - 9.0 mg/dl [facility] 11/12/2001 11:3 0 EDT 11/12/2001 18:55 EDT Conchita Robert NP CHEMISTRY & BLOO D GAS ORDERABLES [facility] [address] [place] [address] * (ABNORMAL) HEMAGRAM & DIFF (11/12/2001 11:30 EDT) WBC 11.77(H) 4.0 - 10.4 K/cmm [facility] RBC 5.40 4.36 - 5.78 M/cmm [facility] Hemoglobin 16.2 13.8 - 17.3 gm/dl [facility] HCT 47.4 39.5 - 50.2 % [facility] MCV 88 81 - 95 fl [facility] MCH 30.0 27.6 - 33.0 pg [facility] MCHC 34.1 32.8 - 36.4 gm/dl [facility] PLT 215 141 - 320 K/cmm [facility] RDW-CV 13.9 11.8 - 14.1 % [facility] % Neutrophils 70.2 45.5 - 79.7 % [facility] % Lymphocytes 19.3 15.0 - 46.8 % [facility] % Monocytes 7.8 1.8 - 12.0 % [facility] % Eosinophils 2.4 0.6 - 6.9 % [facility] % Basophils 0.3 0.2 - 1.4 % [facility] ABS Neutrophils 8.27 2.20 - 8.85 K/cmm [facility] ABS Lymphs 2.27 1.09 - 3.30 K/cmm [facility] ABS Monocytes 0.91(H) 0.1 - 0.8 K/cmm [facility] ABS Eosinophils 0.28 0.03 - 0.61 K/cmm [facility] ABS Basophils 0.03 0.01 - 0.11 K/cmm [facility] Type of Diff: Automated [facility] 11/12/2001 11:3 0 EDT 11/12/2001 18:55 EDT Conchita Robert NP HISTORICAL LAB F OR SQ LOAD [facility] [address] [place] [address] * (ABNORMAL) BASIC METABOLIC PANEL (11/12/2001 11:30 EDT) Sodium 141 136 - 145 mEq/L [facility] Potassium 4.2 3.5 - 5.0 mEq/L [facility] Chloride 100 96 - 110 mEq/L [facility] CO2 29 24 - 30 mEq/L [facility] BUN 18 10 - 26 mg/dl [facility] Creatinine 1.0 0.7 - 1.5 mg/dl [facility] Calcium 9.4 8.5 - 10.5 mg/dl [facility] Calculated Calcium 9.4 8.5 - 10.5 mg/dl [facility] Glucose, Serum 111(H) 70 - 110 mg/dl [facility] 11/12/2001 11:3 0 EDT 11/12/2001 18:55 EDT Conchita Robert JOB INTERVIEWER CHEMISTRY & BLOO D GAS ORDERABLES Performing Organization Address City/[facility] Co de Phone Number [facility] [address] [place] [address] * HEMOGLOBIN A1C (11/12/2001 11:30 EDT) Hemoglobin A1C 6.5 % [facility] Comment: <6% Normal Range <7% Recommended goal by ADA guidelines 7-8% Suboptimal by ADA guidelines >8% Further action suggested by ADA guidelines 11/12/2001 11:3 0 EDT 11/12/2001 18:55 EDT Conchita Robert JOB INTERVIEWER CHEMISTRY & BLOO D GAS ORDERABLES [facility] [address] [place] [address] documented in this encounter Visit Diagnoses Not on filedocumented in this encounter
--- OUTSIDE RECORDS SUMMARY | 2023-09-19 17:20 | XMS_ITS | Referral Summary ---
Author Organization [facility] Address [address] [place] [address] Care Team Providers Care Credit Risk Modeler Name Role Phone Unknown, Provider Primary Care Provider [phone] Allergies No known active allergies Active Problems Problem Noted Date Diagnosed Date Essential hypertension, benign Tobacco use disorder Obesity Overview: ICD10 Update Auto Replacement Sleep apnea Overview: ICD10 Update Auto Replacement Diabetes ([facility]) Overview: ICD10 Update Auto Replacement Gout Overview: ICD10 Update Auto Replacement Hyperlipidemia Overview: ICD10 Update Auto Replacement Social History Tobacco Use Types Packs/Day Years Used Date Smoking Tobacco: Never Assessed Sex and Gender Information Value Date Recorded Sex Assigned at Not on file Gender Identity Not on file Sexual Orientation Not on file Plan of Treatment Not on file Care Teams Credit Risk Modeler Relationship Specialty Start Date End Date Unknown, Provider, PCP - General 12/25/14
--- OUTSIDE RECORDS SUMMARY | 2023-09-19 17:20 | XMS_ITS | Encounter Summary ---
Author Organization [facility] Address [address] [place] [address] Care Team Providers Care Unhairing Inspector Name Role Phone Unavailable Primary Care Provider Unavailabl e Encounter Details Date Type Department Care Team (Late st Contact Info) Description 11/20/1998 8:57 EDT Hospital Encounter [facility] - Other [address] [place] [address] Roc Al MD Unknown, Provider, Social History Tobacco Use [...]
[2023-09-19 17:35] VITALS: BP 110/74; PULSE 59; RESP 17; TEMP 36.9; O2SAT 92
[2023-09-19 17:39] VITALS: BP 110/74; PULSE 59; RESP 17; TEMP 36.9; O2SAT 92
[2023-09-19] MEDS: Clotrimazole/Betamet Diprop Cream 15 GM TUBE TP (19:23)
[2023-09-19 19:27] VITALS: BP 113/65; PULSE 78; RESP 16; TEMP 36.9; O2SAT 95
--- NOTE | 2023-09-19 20:02 | ED.GENADUL_ITS ---
Discharge Plan Disposition Patient Disposition: Home Discharge Details Clinical Impression: Dermatitis Primary Care Provider: Zach Bustillo ED Provider: Elvi Scanlon Home Meds and New Rx's Prescriptions: New clotrimazole-betamethasone 1-0.05 % lotion 1 applic topical BID 14 Days Qty: 30 0RF Continued aspirin [Aspir-81] 81 MG tablet,delayed release (DR/EC) 81 mg PO DAILY amlodipine 10 MG tablet 10 mg PO DAILY hydrochlorothiazide 25 MG tablet 25 mg PO DAILY albuterol sulfate [ProAir HFA] 200 PUFF HFA aerosol inhaler 2 puff Inhalation Q8H PRN PRN lisinopril 40 MG tablet 40 mg PO DAILY atenolol 50 MG tablet 50 mg PO DAILY prednisone 20 mg tablet 40 mg PO DAILY Qty: 6 0RF atorvastatin 40 mg Tablet 40 mg PO QPM metformin 850 mg Tablet 850 mg PO BID hydrocodone-acetaminophen 5-325 mg tablet 1 tab PO DAILY Patient Comments: TAKE 1 TABLET BY MOUTH EVERY 6 HOURS NEEDED. MAX DAILY DOSE 4 TABLETS. MUST LAST 28 DAYS fluticasone propion-salmeterol [Advair HFA] 115-21 mcg/actuation HFA aerosol inhaler 1 puff INHALATION DAILY Patient Comments: INHALE 2 PUFFS BY MOUTH TWICE DAILY sumatriptan succinate 50 mg Tablet 50 mg PO ONCE hydrochlorothiazide 12.5 mg capsule 12.5 mg PO ONCE ondansetron 4 mg tablet,disintegrating 4 mg PO Q8H PRNQty: 7 0RF cephalexin 500 mg capsule 500 mg PO QID Qty: 40 0RF Discharge Instructions Instructions: Fungal Skin Rash, Eczema ED, Skin Rash ED Additional Instructions: At this time I am unsure as to whether or not your rash may be fungal versus an isolated contact dermatitis, and applied some cream and it like for you to allow your skin to air dry as much as possible Please return with spreading redness, fever, worsening pain Please follow-up at your scheduled appointment and elevate your leg is much as possible Return earlier should you have new or worsening complaints Referrals: Zach Bustillo [Primary Care Provider] - HPI General Date/Time Provider Initiated Documentation: 09/19/23 18:27 . HPI Narrative: This emelina 72-year-old male with history of hypertension, hyperlipidemia diabetes presents with report of rash and swelling to left lower extremity intermittently for the past several months. States he was on 2 antibiotics and feels as though his symptoms improved. He states that over the course of the past week despite putting bag balm and dressings on it daily he has had some red papules and some discomfort. He is concerned he may have recurrent cellulitis. Denies any fever chills or systemic signs of illness. States his blood sugars have been within normal limits and all in between 102 100. Related Data Home Medications ?Medication ?Instructions ?Recorded ?Confirmed albuterol sulfate 90 mcg/actuation 2 puff inhalation Q8H PRN PRN 03/13/14 08/09/23 aerosol inhaler (ProAir HFA) amlodipine 10 mg tablet 10 mg PO DAILY 03/13/14 08/09/23 aspirin 81 mg tablet,delayed 81 mg PO DAILY 03/13/14 08/09/23 release (Aspir-) atenolol 50 mg tablet 50 mg PO DAILY 03/13/14 08/09/23 hydrochlorothiazide 25 mg tablet 25 mg PO DAILY 03/13/14 08/09/23 lisinopril 40 mg tablet 40 mg PO DAILY 03/13/14 08/09/23 atorvastatin 40 mg tablet 40 mg PO QPM 08/06/18 08/09/23 metformin 850 mg tablet 850 mg PO BID 08/06/18 08/09/23 prednisone 20 mg tablet 40 mg (2 x 20 mg) PO DAILY #6 tabs 04/09/19 08/09/23 fluticasone propionate 115 1 puff inhalation DAILY 09/23/19 08/09/23 mcg-salmeterol 21 mcg/actuation HFA inhaler (Advair HFA) hydrocodone 5 mg-acetaminophen 325 1 tab PO DAILY 09/23/19 08/09/23 mg tablet sumatriptan succinate 50 mg tablet 50 mg PO ONCE 09/23/19 08/09/23 cephalexin 500 mg capsule 500 mg PO QID #40 caps 08/09/23 hydrochlorothiazide 12.5 mg capsule 12.5 mg PO ONCE 08/09/23 08/09/23 ondansetron 4 mg disintegrating 4 mg PO Q8H PRN #7 tabs 08/09/23 tablet clotrimazole-betamethasone 1 1 applic topical BID 2 weeks #30 mL 09/19/23 %-0.05 % lotion Previous Rx's ?Medication ?Instructions ?Recorded prednisone 20 mg tablet 40 mg (2 x 20 mg) PO DAILY #6 tabs 04/09/19 cephalexin 500 mg capsule 500 mg PO QID #40 caps 08/09/23 ondansetron 4 mg disintegrating 4 mg PO Q8H PRN #7 tabs 08/09/23 tablet clotrimazole-betamethasone 1 1 applic topical BID 2 weeks #30 mL 09/19/23 %-0.05 % lotion Allergies Allergy/AdvReac Type Severity Reaction Status Date / Time No Known Allergies Allergy Unverified 09/23/19 09:33 General Stated Complaint: Cellulitis ANGELO: 3 Exam Narrative Exam Narrative: 72-year-old male in no acute distress, alert and oriented, no respiratory distress, distal pulses intact all 4 extremities, left lower extremity with swelling and macerated dry tissue with some papules, no warmth, no fluctuance or crepitus, sensation intact distally, Isaac lamp with fluorescence Course Vital Signs Vital signs: Vital Signs Temperature 36.9 C 09/19/23 17:35 Pulse 59 L 09/19/23 17:35 Respiratory Rate 17 09/19/23 17:35 Blood Pressure 110/74 09/19/23 17:35 Pulse Oximetry 92 09/19/23 17:35 Temperature 36.9 C 09/19/23 19:27 Temperature Source Temporal Artery Scan 09/19/23 17:39 Pulse 78 09/19/23 19:27 Respiratory Rate 16 09/19/23 19:27 Respiratory Effort Normal 09/19/23 17:38 Blood Pressure 113/65 09/19/23 19:27 Blood Pressure Position Sitting 09/19/23 17:39 Pulse Oximetry 95 09/19/23 19:27 Oxygen Delivery Method Room Air 09/19/23 17:39 Oxygen Flow Rate 0 09/19/23 17:39 Pain Level 8 09/19/23 17:39 Comment Pain in knee 3, pain in hip 8 when he lies down 09/19/23 17:39 Medical Decision Making 72-year-old male in no acute distress, rash noted to left lower extremity suspect this is a dermatitis. I will treat patient with Lotrisone cream and allowing it to air dry for the next several days. At this time I am unsure as to whether or not to dermatitis superimposed with fungal infection. He will need outpatient follow-up he does have an appointment in a week. I have low suspicion clinically that this is infectious and I see no indication for antibiotics at this time. Patient is given very low threshold to return should he have new or worsening complaints although discharged home in stable condition with stable vitals at this time. Quality:SDOH Health Related Social Needs: No Data to Display PFSH All Active Problems (Updated 09/19/23 @ 19:01 by ERNA Govea) Dermatitis (Acute) Pain (Acute) Social History Smoking/Tobacco Use Status: Former Tobacco Use Smoking risk assessment performed?: Yes Alcohol Intake: never Drug use: Never Details: Quit cigarettes 6-9 mos ago Do you feel safe at home: Yes Do you feel safe in your relationship?: Yes
--- NOTE | 2023-09-21 09:33 | NUR.NOTE ---
Accessed Pt chart to check to see if there is an order for DI, there is not. It stated he was here for a rash.
== END 2023-09-19 19:27 | disposition home or self-care (01) ==
PROVIDERS: Emergency Provider Physician Assistant; PCP Internal Medicine
DX: L30.9 Dermatitis, unspecified (principal); I10 Essential (primary) hypertension; E78.5 Hyperlipidemia, unspecified; E11.9 Type 2 diabetes mellitus without complications; Z79.82 Long term (current) use of aspirin; Z79.84 Long term (current) use of oral hypoglycemic drugs; Z87.891 Personal history of nicotine dependence
CPT/HCPCS: 99283

== ENCOUNTER 2024-07-20 17:20 | Outpatient (REF) | payer MEDICARE, SELFPAY ==
[2024-07-20 19:47] LABS: Anion Gap 7.6 mmol/L (3-11); BUN 41 mg/dL (7-18); CO2 28.4 mmol/L (21.0-32.0); CREATININE 2.3 mg/dL (0.70-1.30); Calcium 9.2 mg/dL (8.5-10.1); Calculated LDL 30 mg/dL (<100); Chloride 101 mmol/L (98-107); Cholesterol 97 mg/dL (<200); Estimated GFR 29.43 (mL/min/1.73m2); Glucose 167 mg/dL (74-106); HDL Cholesterol 51 mg/dL (>or=40); Magnesium 1.7 mg/dL (1.8-2.4); Potassium 4.3 mmol/L (3.5-5.1); Sodium 137 mmol/L (136-145); Triglyceride 82 mg/dL (<150)
[2024-07-27 10:46] LABS: Testosterone, Total 306 ng/dL (240-950)
== END 2024-07-20 17:21 | disposition home or self-care (01) ==
LOC: NCHCN 17:20
PROVIDERS: PCP Internal Medicine; Visit Provider Internal Medicine
DX: I10 Essential (primary) hypertension (principal); R53.1 Weakness; E78.49 Other hyperlipidemia
CPT/HCPCS: 80048; 80061; 84403; 83735

== ENCOUNTER 2024-07-28 01:20 | Outpatient (CLI) | payer MEDICARE, SELFPAY ==
--- NOTE | 2024-07-28 | DI.US_ITS ---
Exam(s) US AAA SCREENING EXAM: US AAA SCREENING CLINICAL HISTORY: HYPERTENSION, SCREENING FOR AAA,I10 COMPARISON: US US LOWER EXTREMITY VENOUS LT from 08/22/2020 FINDINGS: Maximum diameter of the abdominal aorta is 2.2 cm. Mild atherosclerotic involvement but no aneurysm.. There is relatively symmetrical arteriomegaly of the visualized common iliac arteries both measuring 1.5 cm. IMPRESSION: No evidence of abdominal aortic aneurysm. Mild symmetrical arterio megaly of the visualized common iliac arteries. DATA REPOSITORY:
== END 2024-07-28 01:40 ==
LOC: DI 01:20
PROVIDERS: PCP Internal Medicine; Visit Provider Internal Medicine
DX: Z13.6 Encounter for screening for cardiovascular disorders (principal); I10 Essential (primary) hypertension
CPT/HCPCS: 76706

== ENCOUNTER 2024-08-19 14:14 | Emergency (ER) | payer MEDICARE, SELFPAY ==
[2024-08-19] VITALS (13 sets, daily range): BP systolic 114–148; BP diastolic 58–74; PULSE 55–80; RESP 14–23; TEMP 36.8; O2SAT 93–98
--- NOTE | 2024-08-19 14:45 | DI.RAD_ITS ---
Exam(s) XR PELVIS AP EXAM: XR PELVIS AP CLINICAL HISTORY: left hip and femur pain. TECHNIQUE: 2D digital imaging was performed. COMPARISON: No exams were available for comparison FINDINGS: Single AP view of the pelvis-hips No evidence of pelvic nor hip fractures. Minimal degenerative changes in the hips. Bone density normal. No osseous lesions. IMPRESSION: No acute osseous findings in the pelvis and hips. DATA REPOSITORY: RADIATION DOSE DELIVERED:
--- NOTE | 2024-08-19 14:45 | DI.RAD_ITS ---
Exam(s) XR FEMUR LT EXAM: XR FEMUR LT CLINICAL HISTORY: left hip and femur pain. TECHNIQUE: 2D digital imaging was performed. COMPARISON: No exams were available for comparison FINDINGS: Two views There is no evidence of left hip nor femur fracture. Left hip joint appears unremarkable. Bone density normal. Vascular calcifications noted in the iliac and throughout the length of the femoral artery down to and beyond the knee level. In IMPRESSION: No acute osseous findings in the left femur. DATA REPOSITORY: RADIATION DOSE DELIVERED:
--- NOTE | 2024-08-19 14:45 | DI.RAD_ITS ---
Exam(s) XR KNEE LT 3V AP,LAT,JO EXAM: XR KNEE LT 3V AP,LAT,JO CLINICAL HISTORY: left knee pain. TECHNIQUE: 2D digital imaging was performed. COMPARISON: No exams were available for comparison FINDINGS: 3 views No obvious fractures although there does appear to be a significant joint effusion in the knee joint. There is also chondrocalcinosis in both medial lateral compartments. Bone density normal. Mild degenerative changes. No osseous lesions. Vascular calcification noted IMPRESSION: No acute osseous findings although there is a joint effusion in the knee noted which may signify internal derangement. There is chondrocalcinosis noted in both the medial and lateral compartments of the knee. There is no obvious degenerative narrowing of these compartments. DATA REPOSITORY: RADIATION DOSE DELIVERED:
[2024-08-19 14:52] LABS: Abs Immature Grans 0.01 10^3/uL (0.0-0.06); HCT 38.7 % (40.0-50.0); HGB 12.7 g/dL (13.5-17.5); Immature Grans % 0.1 %; MCH 30.4 pg (27.0-33.0); MCHC 32.8 % (32.0-36.0); MCV 93 fL (80-95); MPV 10.3 fL (8.0-11.0); Platelet Count 214 10^3/uL (130-400); RBC 4.18 10^6/uL (4.36-5.78); RDW 14.6 % (11.8-14.1); RDW-SD 49.3 fL; WBC 9.76 10^3/uL (4.4-10.8)
--- NOTE | 2024-08-19 15:04 | W.ED.GENAD ---
Discharge Plan Disposition Patient Disposition: Home Condition: Good Discharge Details Clinical Impression: Left leg pain Primary Care Provider: Zach Bustillo ED Provider: Sin Wolfe Home Meds and New Rx's Prescriptions: No Action aspirin [Aspir-81] 81 MG tablet,delayed release (DR/EC) 81 mg PO DAILY amlodipine 10 MG tablet 10 mg PO DAILY albuterol sulfate [ProAir HFA] 200 PUFF HFA aerosol inhaler 2 puff Inhalation Q8H PRN PRN lisinopril 40 MG tablet 40 mg PO DAILY atenolol 50 MG tablet 50 mg PO DAILY atorvastatin 40 mg Tablet 40 mg PO QPM metformin 850 mg Tablet 850 mg PO BID hydrocodone-acetaminophen 5-325 mg tablet 1 tab PO DAILY Patient Comments: TAKE 1 TABLET BY MOUTH EVERY 6 HOURS NEEDED. MAX DAILY DOSE 4 TABLETS. MUST LAST 28 DAYS fluticasone propion-salmeterol [Advair HFA] 115-21 mcg/actuation HFA aerosol inhaler 1 puff INHALATION DAILY Patient Comments: INHALE 2 PUFFS BY MOUTH TWICE DAILY sumatriptan succinate 50 mg Tablet 50 mg PO ONCE Discharge Instructions Instructions: Leg Pain (ED) Additional Instructions: At this time your x-rays do show arthritis, but there is no evidence of fracture. I am concerned that there is also a ligamentous injury causing some of your symptoms. Please use the hinged knee brace and the walker at all times and follow-up closely with your family doctor on Thursday at your scheduled appointment. Please contact physical therapist for initiation of physical therapy for your leg. If you notice any worsening of your symptoms, or any new symptoms such as vomiting, diarrhea, fever, chills, shortness of breath, chest pain, numbness, weakness, or fainting , please return immediately to the emergency department for reevaluation. Please follow up with your primary care provider as soon as possible for reassessment and reevaluation. As always, it was a pleasure participating in your medical care today. Stand Alone Forms: Physical Therapy Referral Referrals: Zach Bustillo [Primary Care Provider, Medicine] [facility] General Date/Time Provider Initiated Documentation: 08/19/24 14:18. HPI Narrative: 73-year-old male with a past medical history of diabetes, reactive airway disease, gout, high cholesterol, who presents today for evaluation of left leg discomfort. Patient is not a great historian, he is here with his , but from what I can gather patient has had left-sided leg pain between his hip down to his knee for the last few weeks, he denies any falls today, but may have had some falls over the last few weeks. He states that today he had been doing well but noticed more pain and discomfort in his leg. He also noticed redness and swelling in his edwards and calf. He felt more pain in his leg than normal when he tried to get up and walk around, they went for a car ride since 8 AM and the patient feels that since then pain has been worse and he has not been able to bear weight because of the pain. He denies any acute weakness, however he feels that he is chronically weak in the left lower extremity. He denies any numbness or tingling. He denies any chest pain or shortness of breath. No other complaints at this time. No fever or chills. Related Data Home Medications ?Medication ?Instructions ?Recorded ?Confirmed albuterol sulfate 90 mcg/actuation 2 puff inhalation Q8H PRN PRN 03/13/14 08/19/24 aerosol inhaler (ProAir HFA) amlodipine 10 mg tablet 10 mg PO DAILY 03/13/14 08/19/24 aspirin 81 mg tablet,delayed 81 mg PO DAILY 03/13/14 08/19/24 release (Aspir-) atenolol 50 mg tablet 50 mg PO DAILY 03/13/14 08/19/24 lisinopril 40 mg tablet 40 mg PO DAILY 03/13/14 08/19/24 atorvastatin 40 mg tablet 40 mg PO QPM 08/06/18 08/19/24 metformin 850 mg tablet 850 mg PO BID 08/06/18 08/19/24 fluticasone propionate 115 1 puff inhalation DAILY 09/23/19 08/19/24 mcg-salmeterol 21 mcg/actuation HFA inhaler (Advair HFA) hydrocodone 5 mg-acetaminophen 325 1 tab PO DAILY 09/23/19 08/19/24 mg tablet sumatriptan succinate 50 mg tablet 50 mg PO ONCE 09/23/19 08/19/24 Allergies Allergy/AdvReac Type Severity Reaction Status Date / Time No Known Allergies Allergy Unverified 08/19/24 14:21 General Stated Complaint: CVA/TIA ANGELO: 3 Exam Narrative Exam Narrative: 1.Const: Well-nourished, Well-developed, appearing stated age 2.Eyes: PERRL, no conjunctival injection, and symmetrical lids. 3.ENT: Atraumatic external nose and ears. Moist MM. Neck: Symmetric, trachea midline, No thyromegaly. 4.CVS: +S1/S2, Peripheral pulses 2+ and equal in all extremities. Brisk capillary refill in all extremities. 5.RESP: Unlabored respiratory effort. Clear to auscultation bilaterally. No wheezes rales or rhonchi 6.GI: Soft, Nontender/Nondistended, No hepatosplenomegaly. No guarding or rebound. 7.MSK: Normocephalic. Patient's left lower extremity demonstrates mild violaceous coloring with slight pitting edema throughout, mild induration throughout as well. Appears to be similar to chronic venous stasis, no tenderness in this area though. Mild subjective tenderness on palpation of midshaft of the femur and the left hip. 5 out of 5 strength in all extremities except 4 out of 5 strength in the left lower extremity. Normal sensation throughout. Normal distal pulses. 8.Skin: Warm, Dry. No rashes or lesions. 9.Neuro: copy and print associate II-XII grossly intact. Sensation grossly intact, no focal neurologic deficits. No dysdiadochokinesia or dysmetria. 10.Psych: (AAO) x3. Appropriate mood and affect Course Vital Signs Vital signs: Vital Signs Temperature 36.8 C 08/19/24 14:15 Pulse 80 08/19/24 14:15 Respiratory Rate 16 08/19/24 14:15 Blood Pressure 128/74 08/19/24 14:15 Pulse Oximetry 98 08/19/24 14:15 Temperature 36.8 C 08/19/24 14:15 Pulse 80 08/19/24 14:15 Respiratory Rate 16 08/19/24 14:15 Respiratory Effort Normal, Non-Labored 08/19/24 14:25 Respiratory Depth Normal 08/19/24 14:25 Respiratory Pattern Normal 08/19/24 14:25 Blood Pressure 128/74 08/19/24 14:15 Pulse Oximetry 98 08/19/24 14:15 Pain Level 0 08/19/24 14:15 Lab/Test Results Lab/Test Results: Laboratory Tests Range/Units 08/19/24 14:32 WBC (4.4-10.8) 10^3/uL 9.76 RBC (4.36-5.78) 10^6/uL 4.18 L Hgb (13.5-17.5) g/dL 12.7 L Hct (40.0-50.0) % 38.7 L MCV (80-95) fL 93 MCH (27.0-33.0) pg 30.4 MCHC (32.0-36.0) % 32.8 RDW (11.8-14.1) % 14.6 H Plt Count (130-400) 10^3/uL 214 MPV (8.0-11.0) fL 10.3 Immature Gran % % 0.1 Neutrophils % % 71.5 Lymphocytes % % 11.6 Monocytes % % 12.3 Eosinophils % % 4.0 Basophils % % 0.5 Nucleated RBC % (0.0-0.3) % 0.0 Absolute Neutrophils (1.2-6.7) 10^3/uL 6.98 H Absolute Lymphocytes (1.2-3.4) 10^3/uL 1.13 L Absolute Monocytes (0.1-0.8) 10^3/uL 1.20 H Absolute Eosinophils (0.0-0.7) 10^3/uL 0.39 Absolute Basophils (0.0-0.2) 10^3/uL 0.05 Medical Decision Making 73-year-old male with a past medical history of diabetes, reactive airway disease, gout, high cholesterol, who presents today for evaluation of left leg discomfort. Patient is not a great historian, he is here with his , but from what I can gather patient has had left-sided leg pain between his hip down to his knee for the last few weeks, he denies any falls today, but may have had some falls over the last few weeks. He states that today he had been doing well but noticed more pain and discomfort in his leg. He also noticed redness and swelling in his edwards and calf. He felt more pain in his leg than normal when he tried to get up and walk around, they went for a car ride since 8 AM and the patient feels that since then pain has been worse and he has not been able to bear weight because of the pain. He denies any acute weakness, however he feels that he is chronically weak in the left lower extremity. He denies any numbness or tingling. He denies any chest pain or shortness of breath. No other complaints at this time. No fever or chills. Exam demonstrates mild violaceous skin coloring over the left edwards and calf, with mild edema and no tenderness. Mild weakness in the left lower extremity compared to the other extremities, however there is concern that this is because the additional weight of the leg. Mild pain in the midshaft femur and left hip. Differential includes trauma and fracture, DVT, no neurologic deficits otherwise to suggest stroke. Will get x-rays, will do portable bedside ultrasound, will monitor closely and reassess. 4:47 PM X-ray results have returned, negative for acute process or fracture. There is evidence of chondrocalcinosis in the medial and lateral components of the knee, there is also a mild effusion of the knee. There appears to be notable arthritis in the left hip. We did give the patient a hinged knee brace no other evidence of fracture though. Bedside ultrasound was performed, there is no evidence of DVT in the patient's left lower extremity. On discussion with family who is at bedside they state that the color on his leg is notably unchanged chronically over the last few years. They state that this is his baseline. They also states that these welling is chronic and unchanged. Patient's D-dimer is elevated at 1000, however ultrasound shows no evidence of DVT. No white count or bandemia to suggest cellulitis. No the patient does have chronic weakness of his left lower extremity secondary to the stroke, however this pain and achiness appears to be more acute within the last few weeks. We did get the patient up with a hinged knee brace and a walker which she has at home, and he ambulated well. Family states that this is better than he has been lately, and definitely at his baseline. Concern for ligamentous injury of the knee, muscle strain of the thigh, and arthritis of both the knee and the hip as causative component of his symptoms. Patient does have follow-up with his primary care provider on Thursday. We will place a physical therapy referral and recommend that they reach out to them. Recommend continued use of the hinged knee brace and walker. I have extensively reviewed the treatment plan and discharge instructions with the patient and their family. I have addressed all patient concerns at this time. The patient and family was made aware of what symptoms to monitor for that would warrant a return to the emergency department. Discussed the plan with the patient and family, they demonstrate verbal understanding and agreement with our assessment and plan at this time. The documentation in this chart was dictated using [employer] dictation software. Please excuse any dictation errors. FINDINGS: Single AP view of the pelvis-hips No evidence of pelvic nor hip fractures. Minimal degenerative changes in the hips. Bone density normal. No osseous lesions. IMPRESSION: No acute osseous findings in the pelvis and hips. FINDINGS: Two views There is no evidence of left hip nor femur fracture. Left hip joint appears unremarkable. Bone density normal. Vascular calcifications noted in the iliac and throughout the length of the femoral artery down to and beyond the knee level. In IMPRESSION: No acute osseous findings in the left femur. FINDINGS: 3 views No obvious fractures although there does appear to be a significant joint effusion in the knee joint. There is also chondrocalcinosis in both medial lateral compartments. Bone density normal. Mild degenerative changes. No osseous lesions. Vascular calcification noted IMPRESSION: No acute osseous findings although there is a joint effusion in the knee noted which may signify internal derangement. There is chondrocalcinosis noted in both the medial and lateral compartments of the knee. There is no obvious degenerative narrowing of these compartments. PFSH All Active Problems (Updated 08/19/24 @ 16:51 by Sin Wolfe DO) Left leg pain (Acute) Pain (Acute) Social History Smoking/Tobacco Use Status: Former Tobacco Use Smoking risk assessment performed?: Yes Alcohol Intake: never Drug use: Never Details: Quit cigarettes 6-9 mos ago Do you feel safe at home: Yes Do you feel safe in your relationship?: Yes POCUS Exam (ED) Limited Vascular Exam DATE OF EXAM: 08/19/24 TIME OF EXAM: 16:07 PROVIDER THAT PERFORMED THE STUDY: Sin Wolfe IS THIS A REPEAT EXAM DURING THIS ENCOUNTER: No Vascular Exam: Left lower extremity REASON FOR EXAM: Concern for DVT left lower extremity VISUALIZED STRUCTURES: Left common femoral vein, Left popliteal vein, Left superficial femoral vein and Left greater saphenous vein PERTINENT FINDINGS/IMPRESSION: Compressible veins left leg and No apparent abnormalities Exam Complete
[2024-08-19 15:09] LABS: ALT 18 U/L (16-63); AST 14 U/L (15-37); Albumin 2.9 g/dL (3.4-5.0); Alkaline Phosphatase 143 U/L (46-116); Anion Gap 12.7 mmol/L (3-11); BUN 22 mg/dL (7-18); Bilirubin, Total 0.4 mg/dL (0.2-1.0); CO2 26.3 mmol/L (21.0-32.0); Calcium 8.7 mg/dL (8.5-10.1); Chloride 105 mmol/L (98-107); Estimated GFR 64.25 (mL/min/1.73m2); Glucose 128 mg/dL (74-106); Magnesium 1.8 mg/dL (1.8-2.4); Potassium 4.0 mmol/L (3.5-5.1); Sodium 144 mmol/L (136-145); Total Protein 7.1 g/dL (6.4-8.2)
[2024-08-19 15:18] LABS: D-Dimer 1083 ng/mlFEU (<500)
--- NOTE | 2024-08-20 10:07 | NUR.NOTE ---
Access chart to get the discharge diagnosis for [facility] billing requisition. Nursing Note:
--- NOTE | 2024-09-05 11:11 | NUR.NOTE ---
Accessed Pt chart to print the discharge summary for [facility]
== END 2024-08-19 17:13 | disposition home or self-care (01) ==
PROVIDERS: Emergency Provider Student in an Organized Health Care Education/Training Program; PCP Internal Medicine
DX: M79.605 Pain in left leg (principal); M25.552 Pain in left hip; R60.0 Localized edema; Z91.81 History of falling
CPT/HCPCS: 99284 ×2; 29505; 36415; 73552; 73562; 80053; 93971; 72170; 83735; 85025; 85379